=== PATIENT | male | born 1935 | race Two or more races ===

== ENCOUNTER 2019-04-05 18:17 | Inpatient (IN) | payer OTHER ==
[~2019-04-05] VITALS: Ht 170.2 cm; Wt 50.3 kg
[2019-04-05 18:15] VITALS: BP 152/77
--- NOTE | 2019-04-05 18:26 | NUR ---
Direct Admit Note WILCOXFREDDY CASTELLANOS admitted to Telemetry unit as a direct admit per MD order. Patient oriented to RED TUCKER RN primary RN, unit, room, bed, and unit policies regarding patient care and visiting hours. Patient now on continuous telemetry monitoring. Patient weighed by bed scale and encouraged to call if they need something. All questions and concerns addressed, patient verbalized understanding. MD notified of patients arrival and admit orders received.
[2019-04-05] MEDS ORDERED: PPN PER PHARMACY 0 ML IV SCH (19:00)
[2019-04-05] MEDS ORDERED: MORPHINE SULF INJ 2 MG/ML SYRINGE 1ML IV PRN (19:00)
[2019-04-05] MEDS ORDERED: ONDANSETRON HCL 4 MG/2 ML VIAL IV PRN (19:00)
[2019-04-05] MEDS ORDERED: NITROGLYCERIN 0.4 MG SL TAB SL PRN (19:00)
--- NOTE | 2019-04-05 19:21 | NUR ---
Sent sacral wound culture to lab and left upper back/shoulder wound culture to lab.
--- NOTE | 2019-04-05 19:23 | NUR ---
Took wound pictures; one wound on left upper back/shoulder, and one would one medial sacrum.
[2019-04-05] MEDS ORDERED: LEVE250T18 PO (19:33)
[2019-04-05] MEDS ORDERED: SIMV-8 PO (19:33)
[2019-04-05] MEDS ORDERED: POTA-220 PO (19:33)
[2019-04-05] MEDS ORDERED: ASPI81CH43 PO (19:33)
[2019-04-05] MEDS ORDERED: FOLI1TAB6 PO (19:33)
[2019-04-05] MEDS ORDERED: BENA20TA PO (19:33)
[2019-04-05] MEDS ORDERED: AMINO ACID INFUSION IN D10W 1,000 ML IV NR (20:00)
--- NOTE | 2019-04-05 20:00 | NUR ---
SITTER AT BEDSIDE;PT AWAKE BUT ALERT ONLY TO SELF.
[2019-04-05 21:32] VITALS: BP 140/73
[2019-04-05] MEDS: LEVETIRACETAM INJ 500 MG in D5W 5% 100 ML IV SCH (22:58)
[2019-04-05] MEDS: CLINDAMYCIN 300MG IV 50 ML IV SCH (22:58)
[2019-04-05] MEDS: FAMOTIDINE (10MG/ML) 2ML VL IV SCH (22:59)
[2019-04-05] MEDS: MORPHINE SULF INJ 2 MG/ML SYRINGE 1ML IV PRN (23:00)
[2019-04-06] VITALS (7 sets, daily range): BP systolic 115–155; BP diastolic 61–88
[2019-04-06] MEDS: CLINDAMYCIN 300MG IV 50 ML IV SCH ×3 (05:15→22:13)
[2019-04-06 06:45] LABS: Basophils # (auto) 0.1 uL; Basophils % (auto) 0.7 % (0.0-2.0); Eosinophils # (auto) 0.4 uL; Eosinophils % (auto) 5.4 % (0.0-7.0); Hematocrit 32.7 % (41.0-53.0); Hemoglobin 10.8 g/dL (13.5-17.5); Lymphocytes # (auto) 0.7 uL; Lymphocytes % (auto) 9.6 % (10.0-50.0); Mean Corpuscular Hemoglobin 29.4 pg (28.0-32.0); Mean Corpuscular Hgb Conc. 33.1 g/dL (32.0-36.0); Mean Corpuscular Volume 88.9 fL (80.0-100.0); Monocytes # (auto) 0.6 uL; Neutrophils # (auto) 5.4 uL; Neutrophils % (auto) 76.3 % (37.0-80.0); Platelet Count (auto) 374 10^3/uL (140-450); Red Blood Cells 3.68 10^6/uL (4.5-5.90); Red Cell Distribution Width 15.3 % (11.8-14.3); White Blood Cell 7.1 10^3/uL (4.4-10.8)
[2019-04-06 07:00] LABS: Albumin 2.2 g/dL (3.4-5.0); BUN/Creatinine Ratio 11.5; Calcium 7.9 mg/dL (8.5-10.1); Magnesium 1.9 mg/dL (1.6-2.6)
--- NOTE | 2019-04-06 07:00 | NUR ---
PT HAD TWO LARGE BM'S IN THE BED;CLEANED WITH PERICARE AND NEW LINEN. PT TURNED Q2 THROUGHOUT THE NIGHT.PT IS ALERT ONLY TO SELF. SITTER AT BEDSIDE.
[2019-04-06 07:05] LABS: Bilirubin, Total 0.3 mg/dL (0.2-1.0); Phosphorus 2.3 mg/dL (2.5-4.90); Pre Albumin 4.9 mg/dL (20.0-40.0); Total Protein 5.3 g/dL (6.4-8.2)
--- NOTE | 2019-04-06 09:30 | NUR ---
WOUND CARE NOTE: SPECIALTY AIR MATTRESS ORDERED AT THIS TIME. PATIENT TO BE PLACED, PENDING DELIVERY BY RAJ ONEILL
--- NOTE | 2019-04-06 10:19 | NUR ---
CALLED PHARMACY REGARDING KETARARA. STATED THEY WOULD SEND UP.
[2019-04-06] MEDS: FAMOTIDINE (10MG/ML) 2ML VL IV SCH ×2 (10:24→22:13)
[2019-04-06] MEDS: ENOXAPARIN SOD 40 MG/0.4 ML SYRINGE SC SCH (10:24)
--- NOTE | 2019-04-06 10:38 | NUR ---
SPOKE TO ABOUT NEED FOR CONSENT SIGNATURE.
--- NOTE | 2019-04-06 11:00 | NUR ---
WOUND CARE NOTE: IN TO SEE PATIENT AT THIS TIME PER WOUND CARE CONSULT REQUEST. PATIENT ADMITTED TO [facility] WITH DIAGNOSIS OF ALOC, MALNUTRITION, FAILURE TO THRIVE. CURRENT ARMIDA SCORE IS 13. PATIENT WAS NOTED TO HAVE WOUNDS UPON ADMIT. WOUND PHOTOS TAKEN AT TIME OF ADMIT FOR REFERENCE BY BEDSIDE NURSE. PATIENT IS NOTED TO BE MAX ASSIST FOR ALL OF HIS ADL'S. HE IS LETHARGIC, CONFUSED. PATIENT IS NOTED TO HAVE AN UNSTAGEABLE PRESSURE ULCER TO THE LEFT BACK AND RIGHT SACRUM. WOUNDS ARE NECROTIC, WITH YELLOW SLOUGH FILLING THE WOUND BED AREAS. SACRAL WOUND HAS PURPLE ECCHYMOSIS NOTED WITHIN WOUND BED WELL. THIS REPRESENTS AN EVOLVING DTI TO THE SACRUM THAT IS NOW UNSTAGEABLE. LEFT SHOULDER/BACK WOUND IS UNSTAGEABLE. NO S/S OF INFECTION NOTED TO EITHER WOUND BED AREAS. APPLIED THERAHONEY AND OPTIFOAM GENTLE DRESSINGS TO WOUNDS. PATIENT ALSO HAS A SMALL BLACK ESCHAR NEUROPATHIC ULCER TO THE LEFT # 2 TOE. LEFT THIS WOUND OPEN TO THE AIR. SPECIALTY AIR MATTRESS HAS BEEN ORDERED. RECOMMEND: FREQUENT TURN SCHEDULE Q 2 HOURS, PRN CONDITION PERMITS, WITH PRESSURE REDISTRIBUTION USING PILLOWS/WEDGES, DAILY/PRN DRESSING CHANGE TO PRESSURE ULCERS ON LEFT SHOULDER/BACK, AND SACRUM, SPECIALTY AIR MATTRESS, DIETARY CONSULT FOR PRESSURE INJURIES, SKIN/WOUND CARE PLAN, CONTINUED MONITORING BY WOUND CARE TEAM. Addendum: 04/06/19 at 1612 by Angelita Lemos RN Amended: Links added.
--- NOTE | 2019-04-06 11:10 | NUR ---
CALLED PHARMACY AGAIN REGARDING GARRICK.
[2019-04-06] MEDS: LEVETIRACETAM INJ 500 MG in D5W 5% 100 ML IV SCH ×2 (11:25→22:13)
[2019-04-06] MEDS ORDERED: POTASSIUM PHOSPHATE IV ONE (13:00)
[2019-04-06] MEDS ORDERED: D5W 5% IV ONE (13:00)
--- NOTE | 2019-04-06 13:07 | NUR ---
Nutrition Assessment Notes Please refer to link for full assessment notes Est energy needs: 6284-6928 kcals (30-35 kcal/kgBW) Est protein needs: 61-76 gms/day (1.2-1.5 gm/kgBW) If EN support administered, consider Vital AF 1.2 @ 60 ml/hr goal rate Will continue to monitor and reassess prn Addendum: 04/06/19 at [address] Amended: Links added.
--- NOTE | 2019-04-06 13:15 | NUR ---
SWALLOW EVAL THERAPIST AT BEDSIDE.
[2019-04-06 13:34] LABS: INR 1.24 (0.9-1.15); Partial Thromboplastin Time 34.3 sec (23.64-32.05)
--- NOTE | 2019-04-06 13:34 | NUR ---
SWALLOW EVALUATED WITH FAMILY PRESENT. PATIENT HAS NO TEETH NO DENTURES HERE. PATIENT ALOC. PATIENT ABLE TO TOLERATE PUREE DIET TEXTURE WITH NECTAR THICKENED LIQUIDS WITH NO OVERT SIGNS OR SYMPTOMS OF ASPIRATION. PATIENT COUGHED ON THIN LIQUIDS TRIAL. NURSING NOTIFIED.
--- NOTE | 2019-04-06 14:25 | NUR ---
SPOKE TO Diann PUCKETT. RECEIVED NEW ORDERS. WILL FOLLOW THROUGH.
[2019-04-06] MEDS: POTASSIUM EFFERVESENT TAB 25 MEQ PO ONE ×2 (17:00→17:45)
--- NOTE | 2019-04-06 18:30 | NUR ---
PAGED GLASS INSERTER HOSPITALIST REGARDING PATIENT REFUSAL TO DRINK PO POTASSIUM. AWAITING CALL BACK.
--- NOTE | 2019-04-06 18:40 | NUR ---
spoke to radiation physicist hospitalist henry mcqueen. received orders for IV Potassium 40meq one time. will follow through.
--- NOTE | 2019-04-06 19:10 | NUR ---
OPENING NOTE- NOC SHIFT PATIENT IS IN BED, A/O X1. NURSE CHIEF ACCOUNTANT AT BEDSIDE FOR SAFETY PRECAUTIONS. BED IS LOCKED AT LOWEST POSITION, BED RAILS UP X2 AND HEAD OF BED IS UP >30 DEGREES. NO S/SX OF DISTRESS OR SOB. WILL CONTINUE TO MONITOR Q1H AND PRN.
[2019-04-06] MEDS: POTASSIUM CHL 20MEQ/100ML 100 ML IV SCH ×2 (19:35→21:20)
[2019-04-06] MEDS ORDERED: DEXTROSE (50%) 50ML SYRG IV SCH (20:00)
[2019-04-06] MEDS ORDERED: PPN PER PHARMACY IV NR ×8 (20:00)
--- NOTE | 2019-04-06 20:08 | NUR ---
PPN NOT ADMINISTERED; PPN NOT AVAILABLE. ON-SITE PHARMACY CLOSED FOR THE NIGHT. CHARGE NURSE AWARE.
--- NOTE | 2019-04-06 20:20 | NUR ---
SPECIALTY BED. PATIENT PLACED ON SPECIALTY BED PER ORDERS. PATIENT TOLERATED TRANSFER TO BED WELL.
[2019-04-06] MEDS: MORPHINE SULF INJ 2 MG/ML SYRINGE 1ML IV PRN (21:20)
--- NOTE | 2019-04-06 23:20 | NUR ---
PATIENT COUGHING UP SPUTUM. TINGED PINK FROTHY SPUTUM; SUCTION NEEDED. APPROX 20 ML.
[2019-04-07] MEDS ORDERED: InsuLIN REG 1unit/0.01ml Soln (100units/ml) SC SCH
[2019-04-07] MEDS ORDERED: ACCU-CHEK COMFORT CURVE STRIP VI SCH
[2019-04-07 04:55] LABS: Basophils # (auto) 0.1 uL; Basophils % (auto) 1.2 % (0.0-2.0); Eosinophils # (auto) 0.4 uL; Eosinophils % (auto) 8.2 % (0.0-7.0); Hematocrit 32.5 % (41.0-53.0); Hemoglobin 11.1 g/dL (13.5-17.5); Lymphocytes # (auto) 1.1 uL; Lymphocytes % (auto) 24.6 % (10.0-50.0); Mean Corpuscular Hemoglobin 29.5 pg (28.0-32.0); Mean Corpuscular Hgb Conc. 34.1 g/dL (32.0-36.0); Mean Corpuscular Volume 86.5 fL (80.0-100.0); Monocytes # (auto) 0.6 uL; Monocytes % (auto) 12.8 % (0.0-12.0); Neutrophils # (auto) 2.4 uL; Neutrophils % (auto) 53.2 % (37.0-80.0); Nucleated Red Blood Cells % 0.1 %; Platelet Count (auto) 423 10^3/uL (140-450); Red Blood Cells 3.75 10^6/uL (4.5-5.90); Red Cell Distribution Width 15.1 % (11.8-14.3); White Blood Cell 4.5 10^3/uL (4.4-10.8)
[2019-04-07 04:58] VITALS: BP 124/51
[2019-04-07 05:14] LABS: Albumin 2.2 g/dL (3.4-5.0); Magnesium 1.9 mg/dL (1.6-2.6); Potassium 3.7 mmol/L (3.5-5.1)
[2019-04-07 05:20] LABS: BUN/Creatinine Ratio 19.6; Bilirubin, Total 0.2 mg/dL (0.2-1.0); Phosphorus 2.7 mg/dL (2.5-4.90); Total Protein 5.3 g/dL (6.4-8.2)
[2019-04-07] MEDS: CLINDAMYCIN 300MG IV 50 ML IV SCH ×3 (06:21→22:11)
--- NOTE | 2019-04-07 07:22 | NUR ---
PHARMACIST AWARE THAT PPN FOR 04/06 1999 WAS NOT AVAILABLE FOR PATIENT LAST NIGHT. WILL ENDORSE FOLLOW UP TO DAY SHIFT NURSE DAWSON PRIETO.
--- NOTE | 2019-04-07 07:25 | NUR ---
ENDORSED PATIENT CARE TO DAY SHIFT NURSE DAWSON PRIETO. NO S/SX OF DISTRESS, SOB OR PAIN. NURSE ASSOCIATE DATA SCIENTIST AT BEDSIDE FOR SAFETY PRECAUTIONS.
--- NOTE | 2019-04-07 07:30 | NUR ---
Opening Shift Note Assuming care of patient at this time. Patient is resting with eyes closed. Patient shows no signs or symptoms of distress or shortness of breath. Bed is locked and lowered with side rails up x2. Will instruct patient on the plan of care for today once patient is awake. Call light within reach. Will continue to round hourly and as needed. Sitter at bedside for safety.
--- NOTE | 2019-04-07 07:40 | NUR ---
Call to Pharmacy Call to pharmacy at this time. Pharmacist made aware that patient did not receive ordered PPN last night. Pharmacist will try and located original ordered PPN and notify this RN. If original PPN is not located, pharmacist may offer something to substitute until scheduled PPN tonight. Awaiting callback.
[2019-04-07] MEDS ORDERED: AMINO ACID INFUSION IN D10W 1,000 ML IV NR (08:15)
[2019-04-07 09:00] VITALS: BP 108/50
--- NOTE | 2019-04-07 09:00 | NUR ---
Patient Behavior Patient has been unresponsive to commands this morning. Patient will not open eyes. Patient only responds slightly to deep sternal rub. Patient had a blood pressure of 89/45. Trendelenburg position gave a blood pressure of 102/44. Will notify MD and continue to monitor.
[2019-04-07] MEDS: POTASSIUM EFFERVESENT TAB 25 MEQ PO SCH (09:16)
[2019-04-07] MEDS: cefTRIAXone 1GM/50ML D5W 50 ML IV SCH (09:16)
--- NOTE | 2019-04-07 09:16 | NUR ---
Potassium Non-Admin Potassium was unable to be given to patient at this time as patient is not responding to verbal commands and unable to swallow. MD aware. Potassium is currently 3.7. No new orders given.
[2019-04-07] MEDS: FAMOTIDINE (10MG/ML) 2ML VL IV SCH ×2 (09:19→22:12)
[2019-04-07] MEDS: ENOXAPARIN SOD 40 MG/0.4 ML SYRINGE SC SCH (09:19)
--- NOTE | 2019-04-07 10:00 | NUR ---
Patient behavior Patient is awake and alert only to himself. Patient is now able to follow commands. Patient's speech is hard to understand. Speech is very garbled.
[2019-04-07] MEDS: LEVETIRACETAM INJ 500 MG in D5W 5% 100 ML IV SCH ×2 (10:29→22:11)
[2019-04-07] MEDS ORDERED: DEXTROSE (50%) 50ML SYRG IV SCH (12:00)
[2019-04-07] MEDS: InsuLIN REG 1unit/0.01ml Soln (100units/ml) SC SCH ×2 (12:00→17:29)
[2019-04-07] MEDS: ACCU-CHEK COMFORT CURVE STRIP VI SCH ×2 (12:04→17:29)
[2019-04-07 13:00] VITALS: BP 150/87
[2019-04-07] MEDS: MORPHINE SULF INJ 2 MG/ML SYRINGE 1ML IV PRN (16:00)
--- NOTE | 2019-04-07 16:00 | NUR ---
Wound Care Dressings changed to patient's sacrum and left shoulder according to doctor's orders. Patient tolerated well. No distress noted.
[2019-04-07 17:00] VITALS: BP 134/62
--- NOTE | 2019-04-07 17:17 | NUR ---
ATTEMPTED TO TURN PT ON RIGHT SIDE ALL DAY WITH PILLOWS UNDER LEFT SIDE. PT KEEPS SCOOTING OVER AND TURNS ON HIS LEFT SIDE AND KICKS PILLOWS OFF THE BED HE TRIES TO GET OUT OF BED. CONNER BLAIR.
--- NOTE | 2019-04-07 18:19 | NUR ---
Call to /Consents Call to at this time in order to get consents signed. states that she already signed consents, informed that those consents were for a PICC line. Patient's states that she wants to ensure that the DrYoselin is aware of his extensive history before surgery. Patient's will be in tomorrow around 0830 to speak with and sign consents. Left unsigned consents and checklist in the chart.
--- NOTE | 2019-04-07 19:11 | NUR ---
Closing Shift Note Patient resting in bed. No distress noted. Report given. Will endorse care to the environmental auditor RN. Sitter at bedside for safety.
[2019-04-07] MEDS ORDERED: PPN PER PHARMACY IV NR ×8 (20:00)
[2019-04-07 20:20] VITALS: BP 149/74
[2019-04-07 22:00] VITALS: BP 149/74
--- NOTE | 2019-04-07 23:35 | NUR ---
OPENING NOTE- NOC SHIFT PATIENT IS IN BED. BED IS SPECIALTY MATTRESS. NO S/SX OF DISTRESS, SOB OR PAIN. NURSE LAND DEVELOPER AT BEDSIDE FOR SAFETY PRECAUTIONS. WILL CONTINUE TO MONITOR Q1H AND PRN. Addendum: 04/07/19 at 2337 by Susan Bernard RN CORRECT TIME FOR THIS NOTE IS 1914
[2019-04-08] MEDS: ACCU-CHEK COMFORT CURVE STRIP VI SCH ×5 (01:52→23:45)
--- NOTE | 2019-04-08 04:45 | NUR ---
RADIOLOGY AT BEDSIDE FOR CHEST XRAY
[2019-04-08 05:00] VITALS: BP 117/40
--- NOTE | 2019-04-08 05:45 | NUR ---
BED BATH, LINEN CHANGE. PATIENT TOLERATED WELL.
[2019-04-08] MEDS: CLINDAMYCIN 300MG IV 50 ML IV SCH ×3 (05:50→22:00)
--- NOTE | 2019-04-08 05:50 | NUR ---
LAB AT BEDSIDE
[2019-04-08] MEDS: InsuLIN REG 1unit/0.01ml Soln (100units/ml) SC SCH ×5 (06:00→23:45)
[2019-04-08 06:17] LABS: Basophils # (auto) 0.1 uL; Eosinophils # (auto) 0.4 uL; Eosinophils % (auto) 8.1 % (0.0-7.0); Hematocrit 36.2 % (41.0-53.0); Hemoglobin 12.2 g/dL (13.5-17.5); Lymphocytes # (auto) 1.2 uL; Lymphocytes % (auto) 23.9 % (10.0-50.0); Mean Corpuscular Hemoglobin 29.3 pg (28.0-32.0); Mean Corpuscular Hgb Conc. 33.6 g/dL (32.0-36.0); Mean Corpuscular Volume 87.2 fL (80.0-100.0); Monocytes # (auto) 0.5 uL; Monocytes % (auto) 8.9 % (0.0-12.0); Neutrophils % (auto) 58.1 % (37.0-80.0); Platelet Count (auto) 422 10^3/uL (140-450); Red Blood Cells 4.15 10^6/uL (4.5-5.90); Red Cell Distribution Width 15.4 % (11.8-14.3); White Blood Cell 5.2 10^3/uL (4.4-10.8)
[2019-04-08 06:30] LABS: INR 1.15 (0.9-1.15); Partial Thromboplastin Time 30.4 sec (23.64-32.05)
[2019-04-08 07:12] LABS: Magnesium 2.1 mg/dL (1.6-2.6)
[2019-04-08 07:16] LABS: BUN/Creatinine Ratio 20.4; Bilirubin, Total 0.2 mg/dL (0.2-1.0); Phosphorus 3.8 mg/dL (2.5-4.90); Total Protein 5.6 g/dL (6.4-8.2)
--- NOTE | 2019-04-08 07:30 | NUR ---
Opening Note Received report from manufacturing shift supervisor RN. Patient is resting with eyes closed. Patient does not wake to name, patient responds to shaking, patient does not open eyes. Patient is on 2L NC, respirations even and unlabored. Sitter at bedside for safety. Bed in low and locked position, call light within reach. Will continue to monitor Q1 hour and PRN. Patient is NPO for scheduled procedure today.
--- NOTE | 2019-04-08 07:35 | NUR ---
ENDORSED PATIENT CARE TO DAY SHIFT NURSE ROSHAN RN. NO S/SX OF DISTRESS, SOB OR PAIN. NURSE COMMERCIAL TELLER AT BEDSIDE FOR SAFETY PRECAUTIONS.
[2019-04-08] MEDS: cefTRIAXone 1GM/50ML D5W 50 ML IV SCH (08:36)
--- NOTE | 2019-04-08 08:50 | NUR ---
IV removal IV to left forearm noted to be edematous and leaking. IV removed from left forearm with clean sterile technique, catheter fully intact. Pressure dressing applied to site. Patient tolerated well. Will continue to monitor Q1 hour and PRN.
[2019-04-08 09:00] VITALS: BP 126/57
[2019-04-08] MEDS: POTASSIUM EFFERVESENT TAB 25 MEQ PO SCH (10:00)
[2019-04-08] MEDS: FAMOTIDINE (10MG/ML) 2ML VL IV SCH ×2 (10:13→21:37)
[2019-04-08] MEDS: LEVETIRACETAM INJ 500 MG in D5W 5% 100 ML IV SCH ×2 (10:14→21:37)
[2019-04-08] MEDS ORDERED: SODIUM CHLORIDE LOCK 10 ML ONE (10:16)
[2019-04-08] MEDS ORDERED: diphenhdrAMINE HCL 50 MG/1 ML VL ONE (10:17)
[2019-04-08] MEDS ORDERED: LIDOCAINE VISCOUS 2% 15ML UD ONE (10:17)
--- NOTE | 2019-04-08 11:53 | NUR ---
Dr. Juju Jackson at bedside Discussing plan of care with patient and this RN. Will continue to monitor Q1 hour and PRN.
--- NOTE | 2019-04-08 12:17 | NUR ---
Patient taken down to pre-op at bedside
[2019-04-08] MEDS ORDERED: ceFAZolin 1GM/50ML 50 ML IV ONE (12:50)
[2019-04-08 13:00] VITALS: BP 118/45
[2019-04-08] MEDS: fentaNYL CITRATE 100 MCG/2 ML VL ONE ×2 (13:11→13:14)
[2019-04-08] MEDS: MIDAZOLAM HCL 5 MG/ML-1ML VIAL ONE ×2 (13:11→13:14)
--- NOTE | 2019-04-08 13:43 | NUR ---
Received report from OR Awaiting patient to be brought back to room.
--- NOTE | 2019-04-08 14:05 | NUR ---
Patient back to room Patient is s/p peg tube placement. Patient is awake, and restless in bed. Vital signs assessed. and sitter at bedside. Per report, ok to use Peg Tube tomorrow. Will continue to monitor Q1 hour and PRN.
--- NOTE | 2019-04-08 15:21 | NUR ---
Assessment and ss consult Pt is an 84 yr old disoriented and confused male. Prior to admit, pt lives with , Amparo, who is his emergency contact at [phone]. Prior to admit, pt was bedridden, non-verbal, non-responsive, and has seizure disorder. Pt needs full assist in the home with ADL's. Pt's primary is Dr. Toledo and no AD on file. Pt receives income and [facility]. Pt's wants the pt to go to a SNF but pt does not qualify and needs acute care for antibiotics. Pt receives income and [facility]. Pt would benefit from assisted living or long term bed upon d/c. SW educated pt on those options for the future if family is not able to take care of the pt in the home. Further needs will be assessed upon d/c. Addendum: 04/08/19 at 1538 by OCTAVIA MCLEAN Amended: Links added.
--- NOTE | 2019-04-08 15:34 | NUR ---
Nutrition Follow-up Notes Wt.: 52.5 kg as of yesterday Pt's on oxygen via nasal cannula, asleep, no no signs of distress noted during rounds this morning. Pt's NPO, currently on TPN @ 54 ml/hr providing 748 kcal, 60 gms pro, 508 NPCs and 13% Fat. Pt with inadequate PN support aeb current PN infusion meets 37% to 45% of est caloric needs and meets 60% to 90% of est protein needs. Noted pt's to receive tonight another TPN @ 65 ml/hr to provide 956 kcal, 70 gms pro, 676 NPCs and 21% Fat and s/p EGD with PEG tube placement. Est. Needs based on IBW (67 kg) : 8141-1647 kcal (25-30 kcal/kgIBW) and 67-100 gms/day (1.0-1.5 gmd/kgIBW d/t severe hypoalbuminemia). Will continue to monitor pertinent labs and reassess nutrient need prn Labs: Cl 108 H, Cr 0.54 L, Ca 8.0 L, ALT 15 L, ALP 140 H, Tpro 5.6 L, alb 2.0 L, ; Prealb 4.9 L, Trig 42 wnl Skin: Hector scale 14, mod risk, pt's medial sacrum DTI per [employer] web[employer] commerce consultant. Pls refer to truck rental clerk's notes for further details re: tx plans. GI: Pt's no bowel activity since 04/05/19 per [employer] web[employer] commerce consultant. PES: Increased nutrient needs r/t acute/chronic medical/nutritional status aeb Metabolic encephalopathy, Dementia, 78% IBW, BMI 18.1 kg/m2, decreased muscle mass, NPO with PN support, s/p PEG tube placement Altered nutrition related lab values r/t current/chronic medical condition aeb hypokalemia, hyperchloremia, low RFTs, hypocalcemia, hypoalbuminemia Will continue to monitor NPO status, PN tolerance, skin status, pertinent labs and weight trend. F/u in 2 to 3 days. Rec.: 1.) If still NPO, consider to initiate EN support with formula choice of Vital AF 1.2 Santiago @ 60ml/hr goal rate via PEG tube as tolerated when medically appropriate. 2.) If remains on PN support, consider gradual increase on calories and protein to meet at least 75% of est nutrient needs. 3.) Refer pt/family to RD for further nutrition education and weight monitoring upon discharge. 5.) Continue current plan of care.
[2019-04-08] MEDS: MORPHINE SULF INJ 2 MG/ML SYRINGE 1ML IV PRN ×2 (15:53→22:01)
[2019-04-08 17:00] VITALS: BP 139/69
--- NOTE | 2019-04-08 17:10 | NUR ---
PICC Nurse at bedside
--- NOTE | 2019-04-08 17:30 | NUR ---
Midline Placement: Per Dr Juju Jackson, okay to place midline d/t pt requiring only 2 weeks of home Abx therapy. Patient educated on need for midline placement. All risks and benefits explained and all questions and concerns addresses prior to procedure. 18g/10cm midline inserted via right cephalic vein using Ultrasound. Sterile technique utilized. Blood return obtained from lumen and flushed easily with NS using proper technique. Midline secured with saline lock; biodisc and occlusive dressing applied. Primary RN notified. Midline lot #[id number]
[2019-04-08] MEDS: MEROPENEM 1GM IVPB 100 ML IV SCH ×2 (17:39→23:03)
--- NOTE | 2019-04-08 19:05 | NUR ---
Wound Photo Patient has skin tear left lateral knee. Photo taken, area cleaned, and Optifoam applied. assembler fishing floats RN aware. Sitter at bedside.
--- NOTE | 2019-04-08 19:10 | NUR ---
Closing Note Report given to shift superintendent RN. No signs or symptoms of distress noted at this time. Sitter at bedside for safety.
--- NOTE | 2019-04-08 19:50 | NUR ---
OPENING SHIFT NOTE RECEIVED REPORT FROM DAYSHIFT RN. PATIENT LYING IN BED WITH SITTER AT BEDSIDE FOR SAFETY. PATIENT A/O TO SELF ONLY. NO S/S OF DISTRESS OR SOB. NO PAIN NOTED AT THIS TIME. PATIENT ON PPN AT 54 MLS/HR. PRIMARY RN TO START NEW PPN BAG AT 65 MLS/HR AT 1999. BED LOCKED IN LOW POSITION, CALL LIGHT WITHIN REACH. WILL CONTINUE TO MONITOR PATIENT Q1HR AND PRN.
[2019-04-08] MEDS ORDERED: PPN PER PHARMACY IV NR ×8 (20:00)
[2019-04-08 22:00] VITALS: BP 172/55
--- NOTE | 2019-04-08 23:30 | NUR ---
WOUND PHOTO TAKEN OF LEFT UPPER EXTREMITY SKIN TEAR. PATIENT CONTINUOUSLY MOVING ARMS AND LEGS AND IS UNCOOPERATIVE. DRESSED SKIN TEAR WITH 3X3 OPTIFOAM AND PLACED PILLOW IN BETWEEN ARM AND ABDOMINAL AREA TO PREVENT FURTHER SKIN BREAKDOWN.
[2019-04-09 04:04] VITALS: BP 140/55
[2019-04-09 05:09] LABS: Potassium 3.4 mmol/L (3.5-5.1)
[2019-04-09] MEDS: CLINDAMYCIN 300MG IV 50 ML IV SCH (05:13)
[2019-04-09 05:14] LABS: Albumin 2.4 g/dL (3.4-5.0); BUN/Creatinine Ratio 23.5; Bilirubin, Total 0.2 mg/dL (0.2-1.0); Calcium 7.9 mg/dL (8.5-10.1); Magnesium 2.1 mg/dL (1.6-2.6); Phosphorus 2.6 mg/dL (2.5-4.90); Total Protein 5.6 g/dL (6.4-8.2)
[2019-04-09] MEDS: InsuLIN REG 1unit/0.01ml Soln (100units/ml) SC SCH ×3 (06:00→18:45)
[2019-04-09] MEDS: ACCU-CHEK COMFORT CURVE STRIP VI SCH ×3 (06:28→18:45)
[2019-04-09] MEDS: MEROPENEM 1GM IVPB 100 ML IV SCH (06:28)
--- NOTE | 2019-04-09 07:55 | NUR ---
OPENING NOTE Assumed care of patient from NOC RNBharati. Patient alert to voice but unable to communicate clearly. No S/S of distress/SOB or pain. Sitter at bed for patient's safety. Midline to right upper arm infusing PPN @ 65mls/hr.Bed in lowest, locked position with side rails up x3 and fall precautions in place. Will continue to monitor for changes Q1hr and PRN.
[2019-04-09 09:00] VITALS: BP 153/72
[2019-04-09] MEDS ORDERED: POTASSIUM PHOSP 22MEQ(15MMOLE) in NS 100 ML IV ONE (10:00)
[2019-04-09] MEDS: POTASSIUM EFFERVESENT TAB 25 MEQ PO SCH (10:00)
[2019-04-09] MEDS: LEVETIRACETAM INJ 500 MG in D5W 5% 100 ML IV SCH ×2 (10:09→22:21)
[2019-04-09] MEDS: FAMOTIDINE (10MG/ML) 2ML VL IV SCH ×2 (10:09→22:21)
[2019-04-09] MEDS: ENOXAPARIN SOD 40 MG/0.4 ML SYRINGE SC SCH (10:09)
[2019-04-09] MEDS: MORPHINE SULF INJ 2 MG/ML SYRINGE 1ML IV PRN (10:10)
[2019-04-09] MEDS ORDERED: AMOXICILLIN/CLAVULAN 500 MG TAB PO ONE (12:30)
[2019-04-09 13:00] VITALS: BP 104/44
[2019-04-09] MEDS ORDERED: LEVOFLOXACIN 750MG 150 ML IV ONE (14:00)
[2019-04-09] MEDS: LORazepam 2MG/ML-1ML VIAL IV PRN (14:15)
[2019-04-09 17:00] VITALS: BP 106/36
[2019-04-09] MEDS ORDERED: PPN PER PHARMACY IV NR ×9 (20:00)
[2019-04-09 21:39] VITALS: BP 137/67
[2019-04-09] MEDS ORDERED: AMOXICILLIN/CLAVULAN 500 MG TAB PO SCH (22:00)
[2019-04-10] MEDS: ACCU-CHEK COMFORT CURVE STRIP VI SCH ×4 (00:41→17:42)
[2019-04-10] MEDS: InsuLIN REG 1unit/0.01ml Soln (100units/ml) SC SCH ×4 (00:42→17:42)
[2019-04-10 03:22] LABS: Urine Bacteria NONE SEEN /hpf (None Seen); Urine Blood Negative /uL (Negative); Urine Specific Gravity 1.008 (1.001-1.035); Urine WBC <1 /hpf (0 - 3)
[2019-04-10 04:52] VITALS: BP 122/72
[2019-04-10 05:41] LABS: Albumin 2.4 g/dL (3.4-5.0); Calcium 8.3 mg/dL (8.5-10.1); Magnesium 2.3 mg/dL (1.6-2.6); Potassium 3.9 mmol/L (3.5-5.1)
[2019-04-10 05:47] LABS: BUN/Creatinine Ratio 24.1; Bilirubin, Total 0.2 mg/dL (0.2-1.0); Phosphorus 3.1 mg/dL (2.5-4.90); Total Protein 5.7 g/dL (6.4-8.2)
--- NOTE | 2019-04-10 07:30 | NUR ---
Opening Shift Note RECEIVED REPORT FROM NOC RN. Assumed care of patient, awake and alert. No S/S of distress/SOB or pain. BED IN LOWEST, LOCKED POSITION WITH SIDERAILS UP x2 AND CALL LIGHT WITHIN REACH. Instructed on POC and to call for assist PRN, will continue to monitor for changes Q1hr and PRN.
[2019-04-10 09:03] VITALS: BP 132/54
[2019-04-10] MEDS: POTASSIUM EFFERVESENT TAB 25 MEQ PO SCH (10:00)
--- NOTE | 2019-04-10 10:18 | NUR ---
Nutrition Consult and Follow-up Notes Wt.: 51.0 kg as of yesterday Pt's s/p EGD with PEG tube placement (04/08/18), asleep, no signs of distress noted earlier, currently NPO with TPN @ 77 ml/hr providing 1164 kcal, 80 gms pro, 844 NPCs and 26% Fat. Pt with inadequate PN support d/t mod initiation rate delivery of concentrated formula aeb current PN infusion meets 58% to 69% of est caloric needs and meets 60% to 90% of est protein needs. Noted pt's to receive tonight another TPN @ 88 ml/hr to provide 1372 kcal, 90 gms pro, 1012 NPCs and 29% Fat and with MD's order to start on EN support via PEG tube today, per nursing. Endorsed to RN re: RD's recommendation, per MD's approval. Est. Needs based on IBW (67 kg) : 2626-5965 kcal (25-30 kcal/kgIBW) and 67-100 gms/day (1.0-1.5 gmd/kgIBW d/t severe hypoalbuminemia). Will continue to monitor pertinent labs and reassess nutrient need prn Labs: Gluc 109 H, BUN 4 L, Cr 0.58 L, Ca 8.3 L, Tpro 5.7 L, Alb 2.4 L ; Prealb 4.9 L, Trig 42 wnl Skin: Hector scale 11, high risk, pt's medial sacrum DTI per industrial waste inspector. Pls refer to subgrade tester's notes for further details re: tx plans. GI: Pt had 1 BM this morning per industrial waste inspector. PES: Increased nutrient needs r/t acute/chronic medical/nutritional status aeb Metabolic encephalopathy, Dementia, 78% IBW, BMI 18.1 kg/m2, decreased muscle mass, NPO with PN support, s/p PEG tube placement Altered nutrition related lab values r/t current/chronic medical condition aeb hypokalemia, hyperchloremia, low RFTs, hypocalcemia, hypoalbuminemia Will continue to monitor NPO status, PN/EN tolerance, skin status, pertinent labs and weight trend. F/u in 2 to 3 days. Rec.: 1.) If still NPO, consider to initiate EN support starting at lower rate with formula choice of Vital AF 1.2 Santiago @ 65ml/hr goal rate via PEG tube as tolerated while gradually tapering down PN support if medically appropriate. 2.) If pt's no longer on PN support with Albumin continues trending down, consider Prostat 1 pkt BID and daily MVI with minerals and Asc acid 500 mgs BID. 3.) Refer pt/family to RD for further nutrition education and weight monitoring upon discharge. 4.) Continue current plan of care. Thank you for this consult.
[2019-04-10] MEDS: LORazepam 2MG/ML-1ML VIAL IV PRN ×2 (11:40→21:53)
[2019-04-10] MEDS: LEVETIRACETAM INJ 500 MG in D5W 5% 100 ML IV SCH ×2 (12:00→21:52)
[2019-04-10] MEDS: LEVOFLOXACIN 750MG 150 ML IV SCH (12:19)
[2019-04-10] MEDS: FAMOTIDINE (10MG/ML) 2ML VL IV SCH ×2 (12:19→21:53)
[2019-04-10] MEDS: ENOXAPARIN SOD 40 MG/0.4 ML SYRINGE SC SCH (12:20)
[2019-04-10 13:00] VITALS: BP 143/76
--- NOTE | 2019-04-10 16:00 | NUR ---
Provided resources to patient Vanessa and daughter Graciela at bedside regarding board and care, private care, and assisting living. Vanessa and Ira verbalize understanding d/c plan.
[2019-04-10] MEDS: MORPHINE SULF INJ 2 MG/ML SYRINGE 1ML IV PRN (16:08)
[2019-04-10 17:00] VITALS: BP 147/95
--- NOTE | 2019-04-10 19:25 | NUR ---
Opening Shift Note Assumed care of patient. Patient is awake with sitter at bedside. No signs of distress/SOB or pain. Will continue to monitor for changes Q1hr and PRN. Bed locked in lowest position and bed rails up x2. Call light within reach.
[2019-04-10] MEDS ORDERED: PPN PER PHARMACY IV NR ×8 (20:00)
[2019-04-10 22:00] VITALS: BP 148/79
[2019-04-11] MEDS: ACCU-CHEK COMFORT CURVE STRIP VI SCH ×4 (01:31→18:26)
[2019-04-11] MEDS: InsuLIN REG 1unit/0.01ml Soln (100units/ml) SC SCH ×4 (01:32→18:00)
[2019-04-11 05:00] VITALS: BP 107/54
[2019-04-11 06:32] LABS: Albumin 2.3 g/dL (3.4-5.0); Calcium 8.1 mg/dL (8.5-10.1); Magnesium 2.3 mg/dL (1.6-2.6)
[2019-04-11 06:36] LABS: BUN/Creatinine Ratio 35.7; Bilirubin, Total 0.2 mg/dL (0.2-1.0); Total Protein 5.5 g/dL (6.4-8.2)
[2019-04-11 08:00] VITALS: BP 114/52
[2019-04-11] MEDS: LEVETIRACETAM INJ 500 MG in D5W 5% 100 ML IV SCH (09:42)
[2019-04-11] MEDS: FAMOTIDINE (10MG/ML) 2ML VL IV SCH (09:42)
[2019-04-11] MEDS: LEVOFLOXACIN 750MG 150 ML IV SCH (09:42)
[2019-04-11] MEDS: POTASSIUM EFFERVESENT TAB 25 MEQ PO SCH (09:43)
[2019-04-11] MEDS: ENOXAPARIN SOD 40 MG/0.4 ML SYRINGE SC SCH (09:43)
[2019-04-11] MEDS: LORazepam 2MG/ML-1ML VIAL IV PRN (11:01)
[2019-04-11 13:00] VITALS: BP 163/67
[2019-04-11 13:48] VITALS: BP 114/52
[2019-04-11] MEDS ORDERED: Ensure HIGH Protein Chocolate 8oz Bottle GT ONE (15:00)
--- NOTE | 2019-04-11 17:08 | NUR ---
D/C Planning Per consult for peg tube teaching, and wound care with dressing changes: left shoulder, left elbow, sacrum, and left knee (therahoney and Optifoam dressing). Order has been reviewed and approved by AVINASH Solorio. Contact [facility] ext. [phone] Fax:) faxed medical records requesting authorization for [facility]. Contact Ph:( [phone]) Fax:) faxed medical records. Per Jorge from [facility] they are unable to accept patient due to not having a RN available for Sunday04/12/19. Lyndsey was informed. Per [facility] for order to be faxed to [facility]. Faxed updated order to [facility] with [facility]. Contact and faxed medical records to [facility] Ph:) Fax:) faxed medical records with authorization [id number]. Per Chica from [facility] order has been received and service to start on Sunday04/12/19. CONNER Jimenez was informed of discharged plan. Addendum: 04/11/19 at 1717 by ANDREA STANTON Amended: Links added.
--- NOTE | 2019-04-11 18:10 | NUR ---
BOLUS OF 240 ML OF ENSURE ADMINISTERED THROUGH G-TUBE. WILL CHECK RESIDUAL AT 1910.
--- NOTE | 2019-04-11 18:10 | NUR ---
PATIENT'S AND DAUGHTER INSTRUCTED ON PROPER USE OF G-TUBE. FEEDING DEMONSTRATION PROVIDED. ALL QUESTIONS ANSWERED.
--- NOTE | 2019-04-11 19:30 | NUR ---
Opening Shift Note Assumed care of patient. Patient is awake with family at bedside. No S/S of distress/SOB or pain. Will continue to monitor for changes Q1hr and PRN. Bed locked in lowest position and bed rails up x3. Call light within reach.
[2019-04-11] MEDS ORDERED: PPN PER PHARMACY IV NR ×8 (20:00)
--- NOTE | 2019-04-11 20:35 | NUR ---
Patient left at this time with family. All IV's were discontinued, wound care completed and family educated
== END 2019-04-11 20:35 | disposition home health service (06) | DRG 70 ==
LOC: TELE-WESTW 18:17 → WEST WING 22:00
PROVIDERS: ADMIT Nurse Practitioner Acute Care; ATTEND Family Medicine
PROC: 0DH63UZ Insertion of Feeding Device into Stomach, Percutaneous Approach (ICD-10-PCS; principal; 2019-04-08 13:06)
DX: G93.41 Metabolic encephalopathy (principal); L89.153 Pressure ulcer of sacral region, stage 3; E43 Unspecified severe protein-calorie malnutrition; I69.354 Hemiplegia and hemiparesis following cerebral infarction affecting left non-dominant side; Z68.1 Body mass index [BMI] 19.9 or less, adult; L03.90 Cellulitis, unspecified; F03.90 Unspecified dementia, unspecified severity, without behavioral disturbance, psychotic disturbance, mood disturbance, and anxiety; I10 Essential (primary) hypertension; G40.909 Epilepsy, unspecified, not intractable, without status epilepticus; R29.6 Repeated falls; E87.6 Hypokalemia; F01.50 Vascular dementia, unspecified severity, without behavioral disturbance, psychotic disturbance, mood disturbance, and anxiety; B96.5 Pseudomonas (aeruginosa) (mallei) (pseudomallei) as the cause of diseases classified elsewhere; E86.0 Dehydration; R62.7 Adult failure to thrive; Z74.01 Bed confinement status
CPT/HCPCS: 36415; 43246; 71045; 80053; 81001; 82040; 82962; 83735; 84100; 84478; 85025; 85610; 85730; 86850; 86900; 86901; 87077; 87081; 87186; 87205; 92610; G0378; J0690; J0696; J1815; J1956; J2185; J2250; J2405; J3480; J3490; J7060

== ENCOUNTER 2019-04-13 18:35 | Inpatient (IN) | payer OTHER ==
[~2019-04-13] VITALS: Ht 198.1 cm; Wt 45.4 kg
[~2019-04-13 18:35] MED LIST: ASPI81CH43 PO; BENA20TA PO; FOLI1TAB6 PO; LEVE250T18 PO; POTA-220 PO; SIMV-8 PO
[2019-04-13] MEDS ORDERED: SODIUM CHLORIDE 0.9% 1,000 ML IV ONE (20:01)
[2019-04-13] MEDS ORDERED: VANCOMYCIN PER PHARMACY 1,000 MG IV SCH (20:15)
[2019-04-13 21:31] LABS: Basophils # (auto) 0 uL; Basophils % (auto) 0.2 % (0.0-2.0); Eosinophils # (auto) 0.1 uL; Eosinophils % (auto) 0.7 % (0.0-7.0); Hematocrit 32.7 % (41.0-53.0); Hemoglobin 10.4 g/dL (13.5-17.5); Lymphocytes # (auto) 0.8 uL; Lymphocytes % (auto) 6.1 % (10.0-50.0); Mean Corpuscular Hemoglobin 28.2 pg (28.0-32.0); Mean Corpuscular Hgb Conc. 31.9 g/dL (32.0-36.0); Mean Corpuscular Volume 88.3 fL (80.0-100.0); Monocytes # (auto) 0.8 uL; Monocytes % (auto) 5.7 % (0.0-12.0); Neutrophils # (auto) 11.9 uL; Neutrophils % (auto) 87.3 % (37.0-80.0); Platelet Count (auto) 437 10^3/uL (140-450); Red Blood Cells 3.71 10^6/uL (4.5-5.90); Red Cell Distribution Width 15.6 % (11.8-14.3); White Blood Cell 13.7 10^3/uL (4.4-10.8)
[2019-04-13 21:43] LABS: INR 1.17 (0.9-1.15); Partial Thromboplastin Time 31.9 sec (23.64-32.05)
[2019-04-13 21:53] LABS: Potassium 3.7 mmol/L (3.5-5.1)
[2019-04-13 21:54] LABS: Albumin 2.5 g/dL (3.4-5.0)
[2019-04-13 21:57] LABS: Bilirubin, Total 0.5 mg/dL (0.2-1.0); Total Protein 5.6 g/dL (6.4-8.2)
[2019-04-13 22:14] LABS: Urine Bacteria FEW /hpf (None Seen); Urine Blood Negative /uL (Negative); Urine Hyaline Cast FEW /lpf (0 - 2); Urine Mucus FEW (None Seen); Urine Specific Gravity 1.005 (1.001-1.035); Urine WBC <1 /hpf (0 - 3)
[2019-04-13] MEDS ORDERED: IOHEXOL 300 MG/ML 100ML BOTTLE IJ ONE (23:31)
[2019-04-14] MEDS ORDERED: VANCOMYCIN 1GM/250ML 250 ML IV ONE (02:00)
[2019-04-14] MEDS ORDERED: MORPHINE SULFATE 4 MG/ML SYR/VIAL IV PRN (03:15)
[2019-04-14] MEDS ORDERED: DOCUSATE SOD 100 MG CAP PO PRN (03:15)
[2019-04-14] MEDS ORDERED: ACETAMINOPHEN 325 MG TAB PO PRN (03:15)
[2019-04-14] MEDS ORDERED: HYDROcodone-ACET 5/325MG TAB PO PRN (03:15)
[2019-04-14] MEDS ORDERED: ONDANSETRON HCL 4 MG/2 ML VIAL IV PRN (03:15)
[2019-04-14] MEDS: PIPERACILLIN-TAZOB 3.375GM 100 ML IV SCH ×4 (03:30→21:05)
[2019-04-14 05:32] LABS: Basophils # (auto) 0 uL; Basophils % (auto) 0.2 % (0.0-2.0); Eosinophils # (auto) 0.1 uL; Hematocrit 34.9 % (41.0-53.0); Hemoglobin 11.6 g/dL (13.5-17.5); Lymphocytes # (auto) 1.2 uL; Lymphocytes % (auto) 8.3 % (10.0-50.0); Mean Corpuscular Hemoglobin 28.7 pg (28.0-32.0); Mean Corpuscular Hgb Conc. 33.3 g/dL (32.0-36.0); Mean Corpuscular Volume 86.1 fL (80.0-100.0); Monocytes % (auto) 6.8 % (0.0-12.0); Neutrophils % (auto) 83.7 % (37.0-80.0); Platelet Count (auto) 443 10^3/uL (140-450); Red Blood Cells 4.05 10^6/uL (4.5-5.90); Red Cell Distribution Width 15.9 % (11.8-14.3); White Blood Cell 14.4 10^3/uL (4.4-10.8)
[2019-04-14 05:50] LABS: Calcium 8.4 mg/dL (8.5-10.1); Potassium 4.1 mmol/L (3.5-5.1)
[2019-04-14 05:54] LABS: BUN/Creatinine Ratio 39.1
[2019-04-14] MEDS: ASPirin 81 mg TAB PO SCH (10:00)
[2019-04-14] MEDS: POTASSIUM CHL 20 Meq TABLET PO SCH (10:00)
[2019-04-14] MEDS: FOLIC ACID 1 MG TAB PO SCH (10:00)
[2019-04-14] MEDS: PANTOPRAZOLE 40 MG/10 ML VIAL INJ IV SCH (10:04)
--- NOTE | 2019-04-14 12:00 | NUR ---
WOUND CARE NOTE: PATIENT RECENTLY READMITTED TO [facility] WITH DIAGNOSIS OF ACUTE GASTRITIS, DIARRHEA, PRESSURE INJURIES. CURRENT ARMIDA SCORE IS 11. PATIENT IS RESTING ON GURNEY IN THE ER, AWAITING PLACEMENT IN TELE. ORDERED SPECIALTY AIR BED AT THIS TIME. PATIENT TO BE PLACED, PENDING DELIVERY BY RAJ MARR. PATIENT WAS NOTED UPON ADMIT TO HAVE MULTIPLE WOUNDS. ALL WOUNDS WERE PHOTOGRAPHED AT THAT TIME BY BEDSIDE NURSE FOR REFERENCE. PATIENT HAS LARGE UNSTAGEABLE PRESSURE ULCER TO SACRUM, STAGE 3 PRESSURE INJURY TO THE RIGHT SHOULDER, MASD PERIRECTAL, PERINEAL, SCROTAL SKIN FROM MULTIPLE BOUTS WITH INCONTINENT DIARRHEA. RECOMMEND: FREQUENT TURN SCHEDULE Q 2 HOURS, PRN CONDITION PERMITS, WITH PRESSURE REDISTRIBUTION USING PILLOWS/WEDGES, SPECIALTY AIR BED, DAILY/PRN DRESSING CHANGE TO SACRAL AND SHOULDER WOUNDS, BID/PRN APPLICATION OF ZGUARD TO REDDENED SKIN OF PERIRECTUM, PERINEAL, SCROTAL SKIN, SKIN/WOUND CARE PLAN, DIETARY CONSULT, CONTINUED MONITORING BY WOUND CARE TEAM. Addendum: 04/14/19 at 2013 by Angelita Lemos RN Amended: Links added.
[2019-04-14] MEDS ORDERED: HALOPERIDOL LACTATE 5 MG/ML INJ VIAL ONE (17:57)
[2019-04-14] MEDS ORDERED: HALOPERIDOL LACTATE 5 MG/ML INJ VIAL IM PRN (18:00)
[2019-04-14 21:29] VITALS: BP 107/55
--- NOTE | 2019-04-14 21:29 | NUR ---
Telemetry admit from FREDDY QUINONEZ admitted to Telemetry unit after SBAR received. Patient oriented to MICHELINE MCKEON RN primary RN, unit, room, bed, and unit policies regarding patient care and visiting hours. Patient now on continuous telemetry monitoring, tele box # 86 and telemetry reading on arrival to unit is Sinus Rhythm at 86BPM. Patient placed on bedside oxygen, weighed by bedscale and encouraged to call if they need something. All questions and concerns addressed, patient verbalized understanding.
[2019-04-14 21:30] VITALS: BP 107/55
[2019-04-14] MEDS: ATORVASTATIN 20 MG TAB PO SCH ×2 (22:00→23:27)
--- NOTE | 2019-04-14 22:00 | NUR ---
Patient is alert and confused, uncleared speech, oriented to self only. Patient has a ramirez with a drain bag with clear yellow urine, rectal tube with small soft bowel movement and has G-tube in place. Patient is restless and moaning and moving from one side of the bed to the other, mittens in placed. Secured side of bed with pillows. Patient has sitter at bedside.
[2019-04-15] MEDS: PIPERACILLIN-TAZOB 3.375GM 100 ML IV SCH ×3 (02:26→14:27)
[2019-04-15 05:00] VITALS: BP 116/54
--- NOTE | 2019-04-15 05:00 | NUR ---
CLEANSE KHRIS AREA AND APPLIED Z-GUARD. DRESSING TO SACRUM AREA CHANGED. MODERATE AMOUNT OF DRAINAGE NOTED TO FOAM DRESSING. PHOTOS TAKEN TO LEFT 2ND TOE LEFT FOOT AND SKIN TEAR TO LEFT FOREARM.
[2019-04-15] MEDS ORDERED: VANCOMYCIN 750mg/250ml 250 ML IV SCH (06:00)
--- NOTE | 2019-04-15 06:00 | NUR ---
MRSA IN NARES SENT TO LAB.
[2019-04-15 07:48] LABS: Basophils # (auto) 0 uL; Basophils % (auto) 0.4 % (0.0-2.0); Eosinophils # (auto) 0.2 uL; Eosinophils % (auto) 1.7 % (0.0-7.0); Hematocrit 31.8 % (41.0-53.0); Hemoglobin 10.7 g/dL (13.5-17.5); Lymphocytes # (auto) 0.9 uL; Lymphocytes % (auto) 8.2 % (10.0-50.0); Mean Corpuscular Hemoglobin 29.2 pg (28.0-32.0); Mean Corpuscular Hgb Conc. 33.6 g/dL (32.0-36.0); Mean Corpuscular Volume 86.9 fL (80.0-100.0); Monocytes # (auto) 0.9 uL; Monocytes % (auto) 8.3 % (0.0-12.0); Neutrophils # (auto) 8.5 uL; Neutrophils % (auto) 81.4 % (37.0-80.0); Platelet Count (auto) 401 10^3/uL (140-450); Red Blood Cells 3.66 10^6/uL (4.5-5.90); Red Cell Distribution Width 15.6 % (11.8-14.3); White Blood Cell 10.4 10^3/uL (4.4-10.8)
[2019-04-15 08:05] LABS: Albumin 2.3 g/dL (3.4-5.0); Calcium 8.4 mg/dL (8.5-10.1); Potassium 3.5 mmol/L (3.5-5.1)
[2019-04-15 08:08] LABS: BUN/Creatinine Ratio 24.2; Bilirubin, Total 0.4 mg/dL (0.2-1.0); Total Protein 5.6 g/dL (6.4-8.2)
[2019-04-15 09:00] VITALS: BP 106/58
--- NOTE | 2019-04-15 09:03 | NUR ---
Assessment and ss consult hospice Pt is an 84 yr old male who is confused. Prior to admission patient lived home with his , Amparo, who is his emergency contact at [phone] and was total care. Prior to admission patient was bedridden, and non-verbal. Pt needs full assist in the home with ADL's. Patients PCP is Dr. Toledo. Pt receives income and custodial income. Patient is on service with [facility]. I informed Amparo and patients daughter Graciela over the phone of patients ss consult for Hospice. I discussed at length hospice options verses home health. Family is undecided. With Bibiana SW2 as a witness I offered family a choice of hospice providers. Per Graciela and Amparo they would like to speak to someone from [facility] since patient is already on service with them. Ne from [facility] will call and set up a time to meet with family. Per Graciela they will call me back and let me know if they want home health or hospice. Radha verbalized understanding. Addendum: 04/15/19 at 0911 by Myriam DA SILVA Amended: Links added.
--- NOTE | 2019-04-15 09:07 | NUR ---
Received a call from Lab, patient positive for s-diff, charge nurse (Emma) notified.
[2019-04-15] MEDS: POTASSIUM CHL 20 Meq TABLET PO SCH ×2 (09:45→10:00)
[2019-04-15] MEDS: ASPirin 81 mg TAB PO SCH ×2 (09:45→10:49)
[2019-04-15] MEDS: PANTOPRAZOLE 40 MG/10 ML VIAL INJ IV SCH (09:45)
[2019-04-15] MEDS: FOLIC ACID 1 MG TAB PO SCH ×2 (09:45→10:49)
[2019-04-15] MEDS ORDERED: FLORASTOR (S. BOULARDII) 250 MG CAP PO SCH (10:00)
[2019-04-15] MEDS ORDERED: VANCOMYCIN HCL 125MG/5ML ORAL SOL GT ONE (10:00)
--- NOTE | 2019-04-15 10:18 | NUR ---
Dr. Oleary paged regarding PEG access order, awaiting to call back.
--- NOTE | 2019-04-15 10:20 | NUR ---
Received a call from cyn Last to access PEG tube and he made aware of patient has positive c-diff.
--- NOTE | 2019-04-15 10:46 | NUR ---
Called Dr. Oleary regarding potassium can not be crush. Awaiting to call back.
--- NOTE | 2019-04-15 11:20 | NUR ---
Dr. Oleary at bedside and made aware of potassium cannot be crush, received new order, noted and carried it out. Signed: 04/15/19 at 1122 by EBONY FLOWERS RN
[2019-04-15] MEDS ORDERED: POTASSIUM EFFERVESENT TAB 25 MEQ GT ONE (11:30)
--- NOTE | 2019-04-15 11:33 | NUR ---
Transferred to room 204. Report given to Elle PRIETO.
--- NOTE | 2019-04-15 11:39 | NUR ---
RECEIVED PATIENT TO ROOM 204A. ALL BELONGINGS AT BEDSIDE. BED ALARM ON, SIDE RAILS UP X3. PATIENT ALERT TO SELF. WILL CONTINUE TO MONITOR.
[2019-04-15] MEDS ORDERED: VANCOMYCIN HCL 125MG/5ML ORAL SOL PO SCH (12:00)
[2019-04-15 13:00] VITALS: BP 124/76
--- NOTE | 2019-04-15 15:13 | NUR ---
Nutrition Assessment Notes Please refer to link for full assessment notes Est energy needs: 8356-5492 kcals (23-25 kcal/kgBW) Est protein needs: 54-68 gms/day (1.2-1.5 gm/kg BW) Will continue to monitor and reassess prn Addendum: 04/15/19 at [address] Amended: Links added.
--- NOTE | 2019-04-15 15:17 | NUR ---
D/C Planning Per consult for hospice. Contact and faxed medical records to [facility] Ph:( [phone]) Fax:) as requested by the family. Per Ne from [place] patient has been accepted and service to start upon d/c day. Transportation has been arrange with General transport Ph:) cloth picker time will be between 16:00-17:00 via gurney. CONNER Almeida was informed. Addendum: 04/15/19 at 1534 by ANDREA STANTON Amended: Links added.
[2019-04-15 17:00] VITALS: BP 140/62
--- NOTE | 2019-04-15 18:13 | NUR ---
PATIENT DISCHARGED HOME ON HOSPICE. GENERAL TRANSPORT AT BEDSIDE. PATIENT TAKEN BY MADYSONRNEY WITH ALL BELONGINGS. NO SIGNS OF DISTRESS AT DEPARTURE.
[2019-04-16] MEDS ORDERED: POTASSIUM EFFERVESENT TAB 25 MEQ GT SCH (10:00)
== END 2019-04-15 18:20 | disposition hospice, home (50) | DRG 391 ==
LOC: ER 18:41 → TELE 18:42 → TELE-WESTW 04-14 21:30 → TELE-CENTR 04-15 11:31
PROVIDERS: ADMIT Hospitalist; ATTEND Internal Medicine
DX: K29.00 Acute gastritis without bleeding (principal); L89.103 Pressure ulcer of unspecified part of back, stage 3; E43 Unspecified severe protein-calorie malnutrition; A04.72 Enterocolitis due to Clostridium difficile, not specified as recurrent; N39.0 Urinary tract infection, site not specified; L03.114 Cellulitis of left upper limb; Z68.1 Body mass index [BMI] 19.9 or less, adult; R62.7 Adult failure to thrive; F03.90 Unspecified dementia, unspecified severity, without behavioral disturbance, psychotic disturbance, mood disturbance, and anxiety; I10 Essential (primary) hypertension; L89.95 Pressure ulcer of unspecified site, unstageable; L89.150 Pressure ulcer of sacral region, unstageable; Z93.1 Gastrostomy status; Z86.73 Personal history of transient ischemic attack (TIA), and cerebral infarction without residual deficits
CPT/HCPCS: 36415; 36600; 70450; 71045; 74177; 80048; 80053; 81001; 82805; 83605; 84484; 85025; 85379; 85610; 85730; 87040; 87081; 87086; 87493; 87804; C9113; G0378; J2405; J2543

== ENCOUNTER 2019-05-23 18:26 | Inpatient (IN) | payer OTHER ==
[~2019-05-23] VITALS: Ht 172.7 cm; Wt 60.5 kg
[2019-05-23] MEDS ORDERED: SODIUM CHLORIDE 0.9% 1,000 ML IV ONE (19:45)
[2019-05-23] MEDS ORDERED: PANTOPRAZOLE 40 MG/10 ML VIAL INJ IV ONE (19:45)
[2019-05-23 22:23] LABS: Monocytes # (auto) 0.6 uL; Neutrophils # (auto) 8.1 uL
[2019-05-23 22:25] LABS: Basophils # (auto) 0 uL; Basophils % (auto) 0.4 % (0.0-2.0); Eosinophils # (auto) 0.4 uL; Eosinophils % (auto) 3.7 % (0.0-7.0); Hematocrit 24.7 % (41.0-53.0); Hemoglobin 8.3 g/dL (13.5-17.5); Lymphocytes # (auto) 1.5 uL; Lymphocytes % (auto) 14.3 % (10.0-50.0); Mean Corpuscular Hemoglobin 27.9 pg (28.0-32.0); Mean Corpuscular Hgb Conc. 33.8 g/dL (32.0-36.0); Mean Corpuscular Volume 82.6 fL (80.0-100.0); Monocytes % (auto) 5.3 % (0.0-12.0); Neutrophils % (auto) 76.3 % (37.0-80.0); Platelet Count (auto) 403 10^3/uL (140-450); Red Blood Cells 2.99 10^6/uL (4.5-5.90); Red Cell Distribution Width 14.9 % (11.8-14.3); White Blood Cell 10.6 10^3/uL (4.4-10.8)
[2019-05-23 22:28] LABS: Urine Bacteria NONE SEEN /hpf (None Seen); Urine Blood Negative /uL (Negative); Urine Budding Yeast FEW /hpf (None Seen); Urine Specific Gravity 1.013 (1.001-1.035); Urine WBC 114 /hpf (0 - 3)
[2019-05-23 22:39] LABS: INR 1.08 (0.9-1.15); Partial Thromboplastin Time 30.4 sec (23.64-32.05)
[2019-05-23 22:42] LABS: Alanine Aminotransferase 79 U/L (16-61); Albumin 2.1 g/dL (3.4-5.0); Anion Gap 4 (5-15); Aspartate Aminotransferase 29 U/L (15-37); BUN/Creatinine Ratio 54.5; Blood Urea Nitrogen 24 mg/dL (7-18); Calcium 7.7 mg/dL (8.5-10.1); Carbon Dioxide 29 mmol/L (21-32); Chloride 98 mmol/L (98-107); GFR African American 237 mL/min; GFR Non-African American 196 mL/min; Glucose 89 mg/dL (74-106); Potassium 4.4 mmol/L (3.5-5.1); Sodium 131 mmol/L (136-145)
[2019-05-23 22:45] LABS: Alkaline Phosphatase 86 U/L (45-117); Bilirubin, Total 0.3 mg/dL (0.2-1.0); Total Protein 5.5 g/dL (6.4-8.2)
[2019-05-24] MEDS ORDERED: HYDROcodone-ACET 5/325MG TAB PO PRN (00:30)
[2019-05-24] MEDS ORDERED: ONDANSETRON HCL 4 MG/2 ML VIAL IV PRN (00:30)
[2019-05-24] MEDS ORDERED: ACETAMINOPHEN 325 MG TAB PO PRN (00:30)
[2019-05-24] MEDS: SODIUM CHLORIDE 0.9% 1,000 ML IV SCH ×2 (01:03→07:54)
[2019-05-24 04:00] VITALS: BP 123/29
[2019-05-24 07:52] VITALS: BP 100/47
[2019-05-24] MEDS: PANTOPRAZOLE 40 MG/10 ML VIAL INJ IV SCH ×2 (10:05→22:06)
[2019-05-24 10:09] LABS: Basophils # (auto) 0.1 uL; Basophils % (auto) 0.6 % (0.0-2.0); Eosinophils # (auto) 0.6 uL; Eosinophils % (auto) 5.6 % (0.0-7.0); Hematocrit 27.6 % (41.0-53.0); Lymphocytes # (auto) 1.5 uL; Lymphocytes % (auto) 15.1 % (10.0-50.0); Mean Corpuscular Hgb Conc. 32.7 g/dL (32.0-36.0); Mean Corpuscular Volume 85.6 fL (80.0-100.0); Monocytes # (auto) 0.7 uL; Monocytes % (auto) 6.7 % (0.0-12.0); Neutrophils # (auto) 7.2 uL; Platelet Count (auto) 412 10^3/uL (140-450); Red Blood Cells 3.23 10^6/uL (4.5-5.90); Red Cell Distribution Width 15.3 % (11.8-14.3); White Blood Cell 10.1 10^3/uL (4.4-10.8)
[2019-05-24 10:44] LABS: Potassium 4.6 mmol/L (3.5-5.1)
[2019-05-24 10:47] LABS: BUN/Creatinine Ratio 55.3
[2019-05-24 11:56] VITALS: BP 110/41
[2019-05-24] MEDS: levETIRAcetam 500 MG TAB PO SCH (13:49)
[2019-05-24] MEDS: ATORVASTATIN 20 MG TAB PO SCH (13:49)
[2019-05-24] MEDS ORDERED: cefTRIAXone 1GM/50ML D5W 50 ML IV ONE (15:30)
[2019-05-24 17:00] VITALS: BP 114/74
[2019-05-24 21:41] VITALS: BP 132/55
[2019-05-25] MEDS: LORazepam 2MG/ML-1ML VIAL IV PRN ×3 (00:16→16:12)
[2019-05-25 05:00] VITALS: BP 109/53
[2019-05-25 06:38] LABS: Basophils # (auto) 0 uL; Basophils % (auto) 0.1 % (0.0-2.0); Eosinophils # (auto) 0 uL; Eosinophils % (auto) 0.1 % (0.0-7.0)
[2019-05-25 06:44] LABS: Hematocrit 23.7 % (41.0-53.0); Hemoglobin 7.9 g/dL (13.5-17.5); Lymphocytes # (auto) 1.4 uL; Lymphocytes % (auto) 5.2 % (10.0-50.0); Mean Corpuscular Hemoglobin 27.9 pg (28.0-32.0); Mean Corpuscular Hgb Conc. 33.6 g/dL (32.0-36.0); Mean Corpuscular Volume 83.2 fL (80.0-100.0); Monocytes # (auto) 0.6 uL; Monocytes % (auto) 2.3 % (0.0-12.0); Neutrophils # (auto) 24.2 uL; Neutrophils % (auto) 92.3 % (37.0-80.0); Platelet Count (auto) 399 10^3/uL (140-450); Red Blood Cells 2.84 10^6/uL (4.5-5.90); White Blood Cell 26.2 10^3/uL (4.4-10.8)
[2019-05-25 09:00] VITALS: BP 116/51
[2019-05-25] MEDS: SODIUM CHLORIDE 0.9% 1,000 ML IV SCH ×2 (09:38→22:14)
[2019-05-25] MEDS: cefTRIAXone 1GM/50ML D5W 50 ML IV SCH (09:38)
[2019-05-25] MEDS: PANTOPRAZOLE 40 MG/10 ML VIAL INJ IV SCH ×2 (09:39→22:09)
[2019-05-25] MEDS: ATORVASTATIN 20 MG TAB PO SCH (09:39)
[2019-05-25] MEDS: levETIRAcetam 500 MG TAB PO SCH (09:39)
[2019-05-25 13:00] VITALS: BP 97/39
[2019-05-25 17:00] VITALS: BP 88/44
[2019-05-25 21:15] VITALS: BP 94/27
[2019-05-25 23:11] VITALS: BP 109/50
[2019-05-26] MEDS: LORazepam 2MG/ML-1ML VIAL IV PRN ×2 (03:40→22:02)
[2019-05-26 04:11] VITALS: BP 128/50
[2019-05-26] MEDS ORDERED: SODIUM CHLORIDE LOCK 10 ML ONE (08:16)
[2019-05-26] MEDS ORDERED: LIDOCAINE VISCOUS 2% 15ML UD ONE (08:16)
[2019-05-26] MEDS ORDERED: MIDAZOLAM HCL 5 MG/ML-1ML VIAL ONE (08:16)
[2019-05-26] MEDS ORDERED: NALOXONE HCL 0.4 MG/ML VIAL ONE (08:16)
[2019-05-26] MEDS ORDERED: FLUMAZENIL 0.1 MG/ML INJ 10ML MDV IV ONE (08:16)
[2019-05-26] MEDS ORDERED: fentaNYL CITRATE 100 MCG/2 ML VL ONE (08:17)
[2019-05-26] MEDS ORDERED: diphenhdrAMINE HCL 50 MG/1 ML VL ONE (08:17)
[2019-05-26] MEDS: Jevity 1.2 Cal/Fiber 1 Liter PEG SCH (08:30)
[2019-05-26] MEDS: cefTRIAXone 1GM/50ML D5W 50 ML IV SCH (08:30)
[2019-05-26] MEDS: PANTOPRAZOLE 40 MG/10 ML VIAL INJ IV SCH ×2 (08:30→21:53)
[2019-05-26] MEDS: ATORVASTATIN 20 MG TAB PO SCH ×2 (08:51→21:54)
[2019-05-26 09:00] VITALS: BP 104/38
[2019-05-26 13:00] VITALS: BP 117/60
[2019-05-26] MEDS ORDERED: IPRATROPIUM BROM 0.5 MG/2.5ML INH SOL NEB ONE (13:45)
[2019-05-26] MEDS ORDERED: ALBUTEROL SULF 2.5 MG/0.5ML(0.5%) NEB SOLN NEB ONE (13:45)
[2019-05-26] MEDS ORDERED: Jevity 1.2 Cal/Fiber 1 Liter GT SCH (15:30)
[2019-05-26] MEDS: levETIRAcetam 500 MG TAB PO SCH (16:02)
[2019-05-26 17:11] VITALS: BP 131/50
[2019-05-26] MEDS: SODIUM CHLORIDE 0.9% 1,000 ML IV SCH (19:30)
[2019-05-26 22:00] VITALS: BP 135/75
[2019-05-27 05:00] VITALS: BP 140/67
[2019-05-27 09:00] VITALS: BP 153/73
[2019-05-27] MEDS: Jevity 1.2 Cal/Fiber 1 Liter PEG SCH (09:54)
[2019-05-27] MEDS: cefTRIAXone 1GM/50ML D5W 50 ML IV SCH (09:54)
[2019-05-27] MEDS: PANTOPRAZOLE 40 MG/10 ML VIAL INJ IV SCH ×2 (09:54→21:46)
[2019-05-27] MEDS: levETIRAcetam 500 MG TAB PO SCH (09:55)
[2019-05-27] MEDS ORDERED: LINEZOLID 600MG/300ML 300 ML IV ONE (10:15)
[2019-05-27] MEDS ORDERED: ERTAPENEM SOD INJ 1 GM in SODIUM CHL 0.9% 50 ML IV ONE (10:15)
[2019-05-27] MEDS ORDERED: levETIRAcetam 500 MG/5ML ORAL SOLN UD GT ONE (10:15)
[2019-05-27] MEDS: SODIUM CHLORIDE 0.9% 1,000 ML IV SCH (11:43)
[2019-05-27 13:00] VITALS: BP 122/49
[2019-05-27 17:00] VITALS: BP 126/78
[2019-05-27] MEDS: MORPHINE SULFATE 4 MG/ML SYR/VIAL IV PRN (20:06)
[2019-05-27] MEDS: LORazepam 2MG/ML-1ML VIAL IV PRN (21:46)
[2019-05-27] MEDS: ATORVASTATIN 20 MG TAB PO SCH (21:46)
[2019-05-27] MEDS: LINEZOLID 600MG/300ML 300 ML IV SCH (21:46)
[2019-05-27 22:00] VITALS: BP 131/61
[2019-05-28] MEDS: MORPHINE SULFATE 4 MG/ML SYR/VIAL IV PRN (04:47)
[2019-05-28 05:00] VITALS: BP 119/55
[2019-05-28] MEDS: SODIUM CHLORIDE 0.9% 1,000 ML IV SCH (05:28)
[2019-05-28] MEDS: LINEZOLID 600MG/300ML 300 ML IV SCH (08:54)
[2019-05-28] MEDS: PANTOPRAZOLE 40 MG/10 ML VIAL INJ IV SCH (08:54)
[2019-05-28 09:00] VITALS: BP 130/60
[2019-05-28] MEDS: LORazepam 2MG/ML-1ML VIAL IV PRN (09:40)
[2019-05-28] MEDS ORDERED: ERTAPENEM SOD INJ 1 GM in SODIUM CHL 0.9% 50 ML IV SCH (10:00)
[2019-05-28] MEDS: Jevity 1.2 Cal/Fiber 1 Liter PEG SCH (10:00)
[2019-05-28] MEDS ORDERED: levETIRAcetam 500 MG/5ML ORAL SOLN UD GT SCH (10:00)
[2019-05-28 13:00] VITALS: BP 130/47
[2019-05-28 16:48] VITALS: BP 130/47
[2019-05-28 17:00] VITALS: BP 110/57
== END 2019-05-28 16:25 | disposition home health service (06) | DRG 382 ==
LOC: EDBD 18:26 → ER 18:26 → TELE 18:27 → DOU IN ICU 05-24 04:19 → TELE-EAST 05-24 14:34 → EAST 05-24 14:37
PROVIDERS: ADMIT Hospitalist; ATTEND Family Medicine
PROC: 0DJ08ZZ Inspection of Upper Intestinal Tract, Via Natural or Artificial Opening Endoscopic (ICD-10-PCS; principal; 2019-05-26 14:17)
DX: K22.10 Ulcer of esophagus without bleeding (principal); K59.00 Constipation, unspecified; G40.909 Epilepsy, unspecified, not intractable, without status epilepticus; D64.9 Anemia, unspecified; K44.9 Diaphragmatic hernia without obstruction or gangrene; L89.156 Pressure-induced deep tissue damage of sacral region; E78.5 Hyperlipidemia, unspecified; E78.00 Pure hypercholesterolemia, unspecified; Z66 Do not resuscitate; K29.70 Gastritis, unspecified, without bleeding; L89.159 Pressure ulcer of sacral region, unspecified stage; Z51.5 Encounter for palliative care; I10 Essential (primary) hypertension; F03.90 Unspecified dementia, unspecified severity, without behavioral disturbance, psychotic disturbance, mood disturbance, and anxiety; B96.29 Other Escherichia coli [E. coli] as the cause of diseases classified elsewhere; Z93.1 Gastrostomy status; Z86.73 Personal history of transient ischemic attack (TIA), and cerebral infarction without residual deficits; Z79.899 Other long term (current) drug therapy; Z79.82 Long term (current) use of aspirin
CPT/HCPCS: 36415; 71045; 74176; 80048; 80053; 80061; 81001; 83605; 84484; 85025; 85379; 85610; 85730; 86850; 86900; 86901; 87040; 87077; 87081; 87086; 87186; 87205; 93005; C9113; G0378; J0696; J1335; J2250

== ENCOUNTER 2019-06-04 22:33 | Inpatient (IN) | payer OTHER ==
[~2019-06-04] VITALS: Ht 172.7 cm; Wt 48.7 kg
--- NOTE | 2019-06-04 22:20 | NUR ---
PATIENT ARRIVED VIA CRITICAL CARE TRANSPORT THROUGH [facility] A TRANSFER FROM [facility]; PT. PLACED ON BEDSIDE MONITOR AND VENTILATOR; SEE INTERVENTIONS FOR ASSESSMENT; SEE IV SPREADSHEET FOR GTTS; VS STABLE AT THIS TIME; PT. INTUBATED/SEDATED/VENTED; NO S/S OF PAIN USING CCPOT SCALE; PT. HAS MULTIPLE WOUND AREAS AND PICTURES WILL BE TAKEN AND WOUND CARE REQUESTED; PT. DOES NOT HAVE ANY BELONGINGS AT BEDSIDE; WILL CONT. TO MONITOR.
[2019-06-04 22:27] VITALS: BP_SYST 141; BP_SYST 97; BP_DIAS 30; BP_DIAS 37
[2019-06-04 22:45] VITALS: BP 120/40
[2019-06-04 23:00] VITALS: BP_SYST 113; BP_SYST 141; BP_DIAS 30
[2019-06-04 23:15] VITALS: BP 110/35
[2019-06-04 23:30] VITALS: BP 112/36
[2019-06-04] MEDS ORDERED: hydrALAZINE HCL 20 MG/ML VL IV PRN (23:30)
[2019-06-04] MEDS ORDERED: VANCOMYCIN PER PHARMACY 0 MG IV SCH (23:30)
--- NOTE | 2019-06-04 23:30 | NUR ---
WOUND PICTURES TAKEN.
[2019-06-04 23:45] VITALS: BP 110/33
--- NOTE | 2019-06-04 23:45 | NUR ---
PT. HAD SMALL, DARK GREEN, LIQUID STOOL AND OCCULT STOOL CULTURE OBTAINED; PROVIDED PER-CARE; PT. TOLERATED WELL.
[2019-06-05] VITALS (106 sets, daily range): BP systolic 80–140; BP diastolic 25–53
[2019-06-05] MEDS ORDERED: VANCOMYCIN 1GM/250ML 250 ML IV ONE (01:00)
[2019-06-05 01:13] LABS: Basophils # (auto) 0 10 ^3/uL (0-0.2); Basophils % (auto) 0.1 % (0.0-2.0); Eosinophils # (auto) 0.6 10 ^3/uL (0-0.8); Hemoglobin 9.3 g/dL (13.5-17.5); Lymphocytes # (auto) 0.8 10 ^3/uL (0.4-5.4); Lymphocytes % (auto) 4.5 % (10.0-50.0); Mean Corpuscular Hemoglobin 28.1 pg (28.0-32.0); Mean Corpuscular Volume 87.7 fL (80.0-100.0); Monocytes # (auto) 0.7 10 ^3/uL (0-1.3); Monocytes % (auto) 3.9 % (0.0-12.0); Neutrophils # (auto) 16.3 10 ^3/uL (1.6-8.6); Neutrophils % (auto) 88.5 % (37.0-80.0); Platelet Count (auto) 336 10^3/uL (140-450); Red Cell Distribution Width 16.9 % (11.8-14.3); White Blood Cell 18.4 10^3/uL (4.4-10.8)
[2019-06-05 01:25] LABS: INR 1.07 (0.9-1.15); Partial Thromboplastin Time 28.5 sec (23.64-32.05)
[2019-06-05 01:31] LABS: Alanine Aminotransferase 18 U/L (16-61); Albumin 1.3 g/dL (3.4-5.0); Anion Gap 5 (5-15); Aspartate Aminotransferase 18 U/L (15-37); BUN/Creatinine Ratio 77.1; Blood Urea Nitrogen 27 mg/dL (7-18); Calcium 7.5 mg/dL (8.5-10.1); Carbon Dioxide 25 mmol/L (21-32); Chloride 115 mmol/L (98-107); GFR African American 308 mL/min; GFR Non-African American 255 mL/min; Glucose 87 mg/dL (74-106); Potassium 3.7 mmol/L (3.5-5.1); Sodium 145 mmol/L (136-145)
[2019-06-05 01:33] LABS: Alkaline Phosphatase 84 U/L (45-117); Bilirubin, Total 0.4 mg/dL (0.2-1.0); Total Protein 4.8 g/dL (6.4-8.2)
[2019-06-05] MEDS: PIPERACILLIN-TAZOB 3.375GM 100 ML IV SCH ×5 (03:00→23:54)
[2019-06-05] MEDS ORDERED: ACETAMINOPHEN 325 MG TAB PO PRN (03:15)
[2019-06-05] MEDS ORDERED: ONDANSETRON HCL 4 MG/2 ML VIAL IV PRN (03:15)
[2019-06-05] MEDS ORDERED: MORPHINE SULF INJ 2 MG/ML SYRINGE 1ML IV PRN (03:15)
[2019-06-05] MEDS ORDERED: NITROGLYCERIN 0.4 MG SL TAB SL PRN (03:15)
[2019-06-05] MEDS: PANTOPRAZOLE 40mg/50ML NS AE 50 ML IV SCH ×5 (04:00→23:00)
[2019-06-05] MEDS: D5W/SOD CHLO 0.9% 1,000 ML IV SCH ×2 (04:00→16:58)
--- NOTE | 2019-06-05 06:15 | NUR ---
OBTAINED SACRAL WOUND CULTURE.
[2019-06-05] MEDS: ALBUTEROL SULF 2.5 MG/0.5ML(0.5%) NEB SOLN NEB SCH ×3 (07:33→18:31)
--- NOTE | 2019-06-05 07:45 | NUR ---
OPENING Report received from Karrie MAYA RN. Care initiated and initial assessment completed.
[2019-06-05] MEDS ORDERED: PROPOFOL 100 ML IV ONE (08:12)
--- NOTE | 2019-06-05 09:00 | NUR ---
AIR MATTRESS: Air mattress ordered at [facility],Reference # [id number]; ETA 05/07/19 @1810, Call [facility] if need to follow up at [phone] Addendum: 06/05/19 at 1218 by Belkys Llamas RN Amended: Links added.
[2019-06-05] MEDS ORDERED: ASPirin 81 mg TAB PO SCH (10:00)
--- NOTE | 2019-06-05 10:50 | NUR ---
BEDSIDE Dr. Gutierrez bedside assessing patient.
--- NOTE | 2019-06-05 12:00 | NUR ---
WOUND CARE Wound care completed with Marly expansion envelope maker hand. Patients sacral/coccyx wound cleaned and therahoney placed with Optifoam over.
--- NOTE | 2019-06-05 12:00 | NUR ---
WOUND CARE NOTE: Wound care in to see patient per wound care request regarding multiple wounds/skin integrity issue that are noted present on admission. Bedside nurse took photograph of patient's wounds/skin issue upon admission for reference. Patient is 84 years old male with admitting diagnosis of Acute Resp Failure. Patient with history of CVA, Seizure, hyperlipidemia. Patient is resting in ICU bed in Rm. 107A. Patient is intubated,sedated and mechanically ventilated. Patient appears to be no pain using Kruse Boogie Faces Pain Scale. His Hector score is 12. Skin/wound assessment done with the assistance of patient's nurse, CONNER Stein. Patient admitted with multiple wounds. He has 2x2cm open partial thickness skin tear to Lt forearm. Wound is red over ecchymotic skin, finn wound is pink, scant serosanguineous drainage noted. Cleansed L forearm skin tear with wound cleanser,patted dry with gauze, applied Thera honey gauze, covered with Opti foam gentle dressing. Patient's Lt heel has non-blanchable redness (Stage 1 pressure injury). Multiple blanchable redness noted on his feet and toes; area is clean and dry,left open to air. Intact DTI also noted to his Lt lateral hunt measuring 6x1.2cm. DTI is intact dark purple, soft to touch, no drainage/odor noted,left open to air. Patient's medial sacrum noted with large open full thickness wound [id number]. Wound bed is 90% red with 10% bass slough , palpable bone noted. Wound has bright and dark red periwound, minimal serous drainage, no odor noted. Undermining noted from 12:00-06:00, with 0.8cm deepest undermining noted at 06:00 o'clock position. Distal sacrum down to coccyx noted with open DTI (Deep Tissue injury) measuring 8x3cm. Wound is dark purple. Another open wound/DTI noted to patient's Rt lower buttock measuring 3x2.5cm. Cleansed patient's sacral,buttock wounds with wound cleanser,patted dry with gauze, applied Thera honey gauze to medial sacral wound. Applied Z Guard cream to periwound and covered wounds with Opti foam sacral/gentle dressing. Patient tolerated well, repositioned for comfort facing his Rt side,redistributed pressure points with pillows. CONNER Stein at bedside. RECOMMENDATION: Nursing to continue with Daily/PRN dressing change to sacral, buttocks wounds; Q3Days/PRN Dressing change to Lt forearm skin tear per MD order, Dietary consult for wounds and low Hector score, frequent turning and repositioning schedule as condition permits, redistribute pressure points with pillows, air mattress (ordered), elevate heels on pillows,frequent finn check/care, keep clean and dry,continue monitoring by wound care while patient is hospitalized. Addendum: 06/05/19 at 1703 by Belkys Llamas RN Amended: Links added.
[2019-06-05] MEDS: PROPOFOL 100 ML IV SCH (15:10)
[2019-06-05] MEDS: MIDAZOLAM DRIP 50 mg/50mL 50 ML IV SCH ×3 (16:58→23:00)
[2019-06-05] MEDS ORDERED: MIDAZOLAM HCL 1MG/1ML-2 ML VIAL IV ONE (17:00)
--- NOTE | 2019-06-05 17:00 | NUR ---
BEDSIDE Dr. Heller bedside. Seizure like activity noted and Versed ordered. Will give medication as ordered.
[2019-06-05] MEDS ORDERED: MIDAZOLAM HCL 1MG/1ML-2 ML VIAL ONE (17:04)
--- NOTE | 2019-06-05 17:30 | NUR ---
MOVED TO AIR MATTRESS No distress noted, all lines remain intact.
[2019-06-05] MEDS ORDERED: NOREPINEPHRINE 8 MG/250ML KIT 250 ML IV ONE (17:52)
--- NOTE | 2019-06-05 18:00 | NUR ---
MD ROBERTS Spoke to Dr. Heller, reported patients blood pressures in 70s with low MAP. Levophed ordered, read back and verified.
[2019-06-05] MEDS: NOREPINEPHRINE 8 MG/250ML KIT 250 ML IV SCH (18:08)
[2019-06-05] MEDS: ATORVASTATIN 20 MG TAB PO SCH (21:50)
[2019-06-05] MEDS: ENOXAPARIN SOD 100 MG/1 ML SYRINGE SC SCH (21:50)
[2019-06-05] MEDS: VANCOMYCIN 750mg/250ml 250 ML IV SCH (22:15)
[2019-06-06] VITALS (98 sets, daily range): BP systolic 90–198; BP diastolic 25–59
[2019-06-06] MEDS: ALBUTEROL SULF 2.5 MG/0.5ML(0.5%) NEB SOLN NEB SCH ×4 (00:04→18:21)
--- NOTE | 2019-06-06 04:42 | NUR ---
complete bed bath and linen change done
--- NOTE | 2019-06-06 04:43 | NUR ---
oral care adone evry 2 hours and turned every 2 hours
[2019-06-06] MEDS: MIDAZOLAM DRIP 50 mg/50mL 50 ML IV SCH (05:00)
[2019-06-06] MEDS: D5W/SOD CHLO 0.9% 1,000 ML IV SCH (06:01)
[2019-06-06] MEDS: PIPERACILLIN-TAZOB 3.375GM 100 ML IV SCH ×4 (06:01→23:33)
--- NOTE | 2019-06-06 07:45 | NUR ---
OPENING Report received from RONI MAYA RN. Care initiated and initial assessment complete.
--- NOTE | 2019-06-06 08:00 | NUR ---
BEDSIDE Dr. Heller bedside.
[2019-06-06] MEDS: ENOXAPARIN SOD 100 MG/1 ML SYRINGE SC SCH ×2 (10:00→21:35)
--- NOTE | 2019-06-06 10:28 | NUR ---
SPOKE TO Holding Lovenox this morning due to GI bleeding. Confirmed with Dr. Gutierrez. Per Dr. Gutierrez I will speak further with primary in regards to this matter.
[2019-06-06] MEDS: PANTOPRAZOLE 40mg/50ML NS AE 50 ML IV SCH ×3 (10:30→19:29)
[2019-06-06] MEDS: PROPOFOL 100 ML IV SCH ×2 (10:30→23:21)
[2019-06-06 11:10] LABS: Basophils # (auto) 0 10 ^3/uL (0-0.2); Eosinophils # (auto) 0.7 10 ^3/uL (0-0.8); Hemoglobin 8.2 g/dL (13.5-17.5); Lymphocytes # (auto) 0.6 10 ^3/uL (0.4-5.4); Mean Corpuscular Hemoglobin 28.2 pg (28.0-32.0); Monocytes # (auto) 0.8 10 ^3/uL (0-1.3)
[2019-06-06 11:11] LABS: Basophils % (auto) 0.1 % (0.0-2.0); Eosinophils % (auto) 6.4 % (0.0-7.0); Hematocrit 24.9 % (41.0-53.0); Lymphocytes % (auto) 5.9 % (10.0-50.0); Mean Corpuscular Hgb Conc. 33.1 g/dL (32.0-36.0); Mean Corpuscular Volume 85.2 fL (80.0-100.0); Monocytes % (auto) 7.1 % (0.0-12.0); Neutrophils # (auto) 8.5 10 ^3/uL (1.6-8.6); Neutrophils % (auto) 80.5 % (37.0-80.0); Platelet Count (auto) 311 10^3/uL (140-450); Red Blood Cells 2.93 10^6/uL (4.5-5.90); Red Cell Distribution Width 16.4 % (11.8-14.3); White Blood Cell 10.5 10^3/uL (4.4-10.8)
[2019-06-06 11:27] LABS: Potassium 3.1 mmol/L (3.5-5.1)
[2019-06-06 11:34] LABS: Albumin 1.2 g/dL (3.4-5.0); BUN/Creatinine Ratio 48.4; Bilirubin, Total 0.3 mg/dL (0.2-1.0); Calcium 7.3 mg/dL (8.5-10.1); Total Protein 4.4 g/dL (6.4-8.2)
--- NOTE | 2019-06-06 12:45 | NUR ---
assessment Patient is a 84 year old male who is on a vent. Per patients daughter Graciela prior to admission patient lived home with family and functioned with assistance. Patients PCP is Dr Toledo. Patient has a wheelchair and fww for home use. Per Graciela patient was having seizures so family called 911 and patient was admitted. On prior admission patient went home with IV ABX and was on home health with [facility] [place] [facility]. I informed Graciela patients post discharge needs to be determined after extubation and prior to discharge. Graciela verbalized understanding. Addendum: 06/06/19 at 1249 by Myriam DA SILVA Amended: Links added.
--- NOTE | 2019-06-06 13:34 | NUR ---
NUTRITION ASSESSMENT/CONSULT NOTES Please refer to link notes of nutrition screen form filed under the intervention section of the plan of care for further details. Est. Energy Needs: 1742-2378 kcal (30-35 kcal/kg BW). Est. Protein Needs: 84-105 gms/day (1.2-1.5 gms/kg IBW). Will continue to monitor pertinent labs and reassess nutrient need prn Addendum: 06/06/19 at [address] Amended: Links added.
--- NOTE | 2019-06-06 13:45 | NUR ---
MD SPEAKING TO FAMILY Dr. Oleary spoke with the patients Vanessa and daughter Graciela about patients wishes. Family asked me post conference what happens next. Briefed family on their options for care including hospice and terminal extubation. Family will conference with one another to make a decision about patients care.
[2019-06-06] MEDS ORDERED: levoFLOXacin 750MG 150 ML IV ONE (14:00)
[2019-06-06] MEDS: POTASSIUM CHL 20MEQ/100ML 100 ML IV SCH ×3 (16:00→21:28)
[2019-06-06] MEDS ORDERED: LIDOCAINE 1% (LOCAL ANESTH.) PF 5ml SDV ID ONE (16:15)
--- NOTE | 2019-06-06 16:18 | NUR ---
PICC line placement Patient significant other () educated on need for PICC line placement. All risks and benefits explained and all questions and concerns addressed prior to procedure. Noted past medical history and allergies with no contraindications. INR and Plt counts within acceptable range. 5fr PICC line inserted via left Brachial vein using [employer] US and Tip Location System. Sterile technique with maximum barrier precautions utilized. Blood return obtained from each of three lumens and each flushed easily with NS using proper technique. PICC secured with Stat-lock; biodisc and occlusive dressing applied. Stat portable chest x-ray obtained for PICC tip placement. *Baseline Arm Circumference 18cm. Internal length 37cm. External length 0cm. PICC lot #[id number].
--- NOTE | 2019-06-06 16:31 | NUR ---
Okay to use PICC line Xray completed and reviewed. Okay to use PICC line.
--- NOTE | 2019-06-06 16:45 | NUR ---
LIQUID BM Large liquid amount of stool.
--- NOTE | 2019-06-06 16:50 | NUR ---
COMPLETE LINEN CHANGE New linens placed post BM. Patient desaturated during turn but recovered quickly.
--- NOTE | 2019-06-06 17:10 | NUR ---
FAMILY BEDSIDE Updated on PICC placement, BM, and current care. All questions and concerns answered.
[2019-06-06] MEDS: NOREPINEPHRINE 8 MG/250ML KIT 250 ML IV SCH (17:49)
[2019-06-06] MEDS: VANCOMYCIN 750mg/250ml 250 ML IV SCH (18:14)
--- NOTE | 2019-06-06 18:35 | NUR ---
RT NOTE RECEIVED PT INTUBATED AND ON VENT V6 ON STATED SETTINGS IN THE ICU. VENT IS PLUGGED TO RED OUTLET. ALARMS ARE ON AND AUDIBLE AT NURSES STATION. AMBU BAG AT BEDSIDE AND CONNECTED TO O2 SOURCE. 7.5 ETT IS SECURED WITH ANCHORFAST AT 20 CM TO THE ORAL CENTER. BILATERAL BS ARE COARSE. HHN GIVEN INLINE WITH 2.5 MG ALBUTEROL WITHOUT ADVERSE REACTION NOTED. PT WAS SUCTIONED FOR LARGE RETURN FROM ETT AND MODERATE RETURN ORALLY. RN AT BEDSIDE. CONT ORDERED. etCO2 27, POX 98% Addendum: 06/06/19 at 1901 by Desiree Lee RT Amended: Links added.
--- NOTE | 2019-06-06 19:34 | NUR ---
recd report from Jessica
--- NOTE | 2019-06-06 19:59 | NUR ---
RT NOTE ROUTINE VENT CHECK DONE. PT INTUBATED AND ON VENT V6 ON STATED SETTINGS IN THE ICU. VENT IS PLUGGED TO RED OUTLET. ALARMS ARE ON AND AUDIBLE AT NURSES STATION. AMBU BAG AT BEDSIDE AND CONNECTED TO O2 SOURCE. 7.5 ETT IS SECURED WITH ANCHORFAST AT 20 CM TO THE ORAL CENTER. PT WAS SUCTIONED FOR SMALL RETURN. POX WAS NOT READING WELL WITH LOW PERFUSION AND LOW SPO2, CHANGED TO EAR CLIP AND MOVED TO THE LEFT EAR, BETTER WAVEFORM AND GOOD SPO2. RN RONI NOTIFIED. CONT ORDERED. etCO2 26, POX 99% Addendum: 06/06/19 at 2042 by Desiree Lee RT Amended: Links added.
[2019-06-06] MEDS: ATORVASTATIN 20 MG TAB PO SCH (21:35)
[2019-06-06] MEDS: SODIUM CHLOR 0.9% PF (SALINE LOCK) 10ML VIAL/SYR IV SCH (21:49)
--- NOTE | 2019-06-06 22:17 | NUR ---
RT NOTE ROUTINE VENT CHECK DONE. PT INTUBATED AND ON VENT V6 ON STATED SETTINGS IN THE ICU. VENT IS PLUGGED TO RED OUTLET. ALARMS ARE ON AND AUDIBLE AT NURSES STATION. AMBU BAG AT BEDSIDE AND CONNECTED TO O2 SOURCE. 7.5 ETT IS SECURED WITH ANCHORFAST AT 20 CM TO THE ORAL CENTER. CONT ORDERED. etCO2 25, POX 96% Addendum: 06/06/19 at 2256 by Desiree Lee RT Amended: Links added.
[2019-06-07] VITALS (76 sets, daily range): BP systolic 88–155; BP diastolic 20–60
[2019-06-07] MEDS: MIDAZOLAM DRIP 50 mg/50mL 50 ML IV SCH ×2 (00:01→04:52)
[2019-06-07] MEDS: PANTOPRAZOLE 40mg/50ML NS AE 50 ML IV SCH ×5 (00:03→20:57)
--- NOTE | 2019-06-07 00:04 | NUR ---
RT NOTE ROUTINE VENT CHECK DONE. PT INTUBATED AND ON VENT V6 ON STATED SETTINGS IN THE ICU. VENT IS PLUGGED TO RED OUTLET. ALARMS ARE ON AND AUDIBLE AT NURSES STATION. AMBU BAG AT BEDSIDE AND CONNECTED TO O2 SOURCE. 7.5 ETT IS SECURED WITH ANCHORFAST AT 20 CM TO THE ORAL CENTER. BS ARE COARSE. PT WAS SUCTIONED FOR MODERATE RETURN. HHN GIVEN INLINE WITH 2.5 MG ALBUTEROL WITHOUT ADVERSE REACTION NOTED. CONT ORDERED. etCO2 26, POX 98% Addendum: 06/07/19 at 0038 by Desiree Lee RT Amended: Links added.
[2019-06-07] MEDS: ALBUTEROL SULF 2.5 MG/0.5ML(0.5%) NEB SOLN NEB SCH ×4 (00:12→11:43)
--- NOTE | 2019-06-07 02:00 | NUR ---
RT NOTE ROUTINE VENT CHECK DONE. PT INTUBATED AND ON VENT V6 ON STATED SETTINGS IN THE ICU. VENT IS PLUGGED TO RED OUTLET. ALARMS ARE ON AND AUDIBLE AT NURSES STATION. AMBU BAG AT BEDSIDE AND CONNECTED TO O2 SOURCE. 7.5 ETT IS SECURED WITH ANCHORFAST AT 20 CM TO THE ORAL CENTER. HME AND INLINE SUCTION CHANGED WITHOUT INCIDENT. CONT ORDERED. etCO2 25, POX 98% Addendum: 06/07/19 at 0350 by Desiree Lee RT Amended: Links added.
--- NOTE | 2019-06-07 03:37 | NUR ---
PICC line is not draing blood good
[2019-06-07 04:25] LABS: Basophils # (auto) 0 10 ^3/uL (0-0.2); Basophils % (auto) 0.2 % (0.0-2.0); Eosinophils # (auto) 0.7 10 ^3/uL (0-0.8); Hematocrit 22.1 % (41.0-53.0); Hemoglobin 7.2 g/dL (13.5-17.5); Lymphocytes # (auto) 0.6 10 ^3/uL (0.4-5.4); Lymphocytes % (auto) 8.4 % (10.0-50.0); Mean Corpuscular Hemoglobin 27.7 pg (28.0-32.0); Mean Corpuscular Hgb Conc. 32.6 g/dL (32.0-36.0); Mean Corpuscular Volume 84.9 fL (80.0-100.0); Monocytes # (auto) 0.6 10 ^3/uL (0-1.3); Monocytes % (auto) 7.7 % (0.0-12.0); Neutrophils # (auto) 5.5 10 ^3/uL (1.6-8.6); Neutrophils % (auto) 74.7 % (37.0-80.0); Nucleated Red Blood Cells % 0.1 %; Platelet Count (auto) 221 10^3/uL (140-450); Red Cell Distribution Width 16.5 % (11.8-14.3); White Blood Cell 7.3 10^3/uL (4.4-10.8)
--- NOTE | 2019-06-07 04:40 | NUR ---
RT NOTE ROUTINE VENT CHECK DONE. PT INTUBATED AND ON VENT V6 ON STATED SETTINGS IN THE ICU. VENT IS PLUGGED TO RED OUTLET. ALARMS ARE ON AND AUDIBLE AT NURSES STATION. AMBU BAG AT BEDSIDE AND CONNECTED TO O2 SOURCE. 7.5 ETT IS SECURED WITH ANCHORFAST AT 20 CM TO THE ORAL RIGHT. CONT ORDERED. etCO2 26, POX 96% Addendum: 06/07/19 at 0446 by Desiree Lee RT Amended: Links added.
[2019-06-07 04:48] LABS: BUN/Creatinine Ratio 41.9; Bilirubin, Total 0.2 mg/dL (0.2-1.0); Calcium 6.4 mg/dL (8.5-10.1); Magnesium 1.7 mg/dL (1.6-2.6); Total Protein 3.8 g/dL (6.4-8.2)
[2019-06-07] MEDS: PIPERACILLIN-TAZOB 3.375GM 100 ML IV SCH ×3 (05:41→18:00)
--- NOTE | 2019-06-07 07:32 | NUR ---
OPENING Report received from Maame PRIETO. Care initiated and initial assessment complete. Unable to obtain temperature. Will place rectal probe.
--- NOTE | 2019-06-07 07:55 | NUR ---
TEMPERATURE Unable to retrieve temperature with thermometer. Rectal probe placed. Initial read 90.2 degrees Fahrenheit. Warming measures applied including warm blankets and Bare Hugger.
--- NOTE | 2019-06-07 07:56 | NUR ---
RECTAL TUBE PLACED Copious dark green, liquid stool. Rectal tube placed as patient has a coccyx wound. Clean sacral optifoam applied.
--- NOTE | 2019-06-07 08:00 | NUR ---
BEDSIDE Dr. Licea bedside assessing patient.
--- NOTE | 2019-06-07 09:30 | NUR ---
BEDSIDE Dr. Griggs bedside assessing patient and reviewing drips/labs.
[2019-06-07] MEDS: ENOXAPARIN SOD 100 MG/1 ML SYRINGE SC SCH (09:43)
[2019-06-07] MEDS: SODIUM CHLOR 0.9% PF (SALINE LOCK) 10ML VIAL/SYR IV SCH (09:43)
[2019-06-07] MEDS ORDERED: levoFLOXacin 500MG 100 ML IV SCH (10:00)
[2019-06-07] MEDS: MAGNESIUM SULFATE 1GM/100ML 100 ML IV SCH ×2 (10:11→11:24)
--- NOTE | 2019-06-07 11:15 | NUR ---
BEDSIDE Dr. Gutierrez bedside assessing patient.
[2019-06-07 12:31] LABS: Basophils # (auto) 0 10 ^3/uL (0-0.2); Basophils % (auto) 0.2 % (0.0-2.0); Eosinophils # (auto) 0.5 10 ^3/uL (0-0.8); Lymphocytes # (auto) 0.6 10 ^3/uL (0.4-5.4); Monocytes # (auto) 0.5 10 ^3/uL (0-1.3); White Blood Cell 5.7 10^3/uL (4.4-10.8)
[2019-06-07 12:33] LABS: Eosinophils % (auto) 9.1 % (0.0-7.0); Hematocrit 20.5 % (41.0-53.0); Lymphocytes % (auto) 9.8 % (10.0-50.0); Mean Corpuscular Hemoglobin 28.6 pg (28.0-32.0); Mean Corpuscular Volume 92.3 fL (80.0-100.0); Neutrophils # (auto) 4.2 10 ^3/uL (1.6-8.6); Neutrophils % (auto) 72.9 % (37.0-80.0); Platelet Count (auto) 187 10^3/uL (140-450); Red Blood Cells 2.22 10^6/uL (4.5-5.90); Red Cell Distribution Width 17.9 % (11.8-14.3)
[2019-06-07 12:35] LABS: Hemoglobin 6.3 g/dL (13.5-17.5)
--- NOTE | 2019-06-07 12:42 | NUR ---
CALLED FAMILY Requested Vanessa, , to come in to sign consents for blood transfusion and speak to .
--- NOTE | 2019-06-07 13:45 | NUR ---
REFUSAL TO BLOOD , Vanessa, bedside. verbalized understanding that patient needs blood transfusion due to critical hemoglobin levels, and daughter understand risks and benefits, and do not want patient transfused at this time. Refusal signed and placed in chart.
--- NOTE | 2019-06-07 14:05 | NUR ---
BEDSIDE Dr. Griggs bedside speaking with patients at this time. Vanessa, , has decided to change patient to do not resuscitate. Orders verified and placed. Phelps Dr. Griggs explain DNR and that we continue care, family verbalized understanding and agreement.
--- NOTE | 2019-06-07 14:30 | NUR ---
MD VISIT Dr. Oleary came and saw pt. and talked to pt.'s and daughter at bedside regarding POC and possible terminal wean, and if pt. lives after extubation pt. will be discharged to home with [facility] care as decided by family.
--- NOTE | 2019-06-07 14:55 | NUR ---
BEDSIDE Dr. Oleary bedside discussing patient care with Vanessa. Vanessa and her daughter Graciela have verbalized that they want David to be comfortable at this time and they do not want any further medical interventions. Comfort measures received from Dr. Oleary. Dr. Oleary ordered hospice as family verbalized this is their wishes. Family is at the bedside at this time with the patient. I have received verbal understanding from the family as to the next steps, extubation and hospice care.
[2019-06-07] MEDS ORDERED: VANCOMYCIN 750mg/250ml 250 ML IV SCH (15:00)
--- NOTE | 2019-06-07 15:20 | NUR ---
HOSPICE NURSE BEDSIDE Hospice nurse bedside discussing hospice measures with and daughter.
--- NOTE | 2019-06-07 16:20 | NUR ---
LINEN CHANGE Complete linen change done at this time. Patient tolerated well. No desaturation or distress noted.
[2019-06-07] MEDS ORDERED: LORazepam 2MG/ML-1ML VIAL IV PRN (16:30)
--- NOTE | 2019-06-07 16:35 | NUR ---
FAMILY BEDSIDE Family bedside verbalizing that they are ready for patients "tube to be pulled."
--- NOTE | 2019-06-07 16:42 | NUR ---
EXTUBATED Patient was extubated at this time with family bedside per them verbalizing that they were ready for terminal wean.
--- NOTE | 2019-06-07 16:42 | NUR ---
Respiratory note: PT TERMINALLY EXTUBATED PER DR ROSA'S ORDER. SPO2 96% ON 2 LNC, HR 85, RR32, BP 119/32, BS CLEAR/DIMINISHED. RN, AND FAMILY AT BEDSIDE.
--- NOTE | 2019-06-07 17:06 | NUR ---
COMFORT CART ARRIVED
[2019-06-07] MEDS: NOREPINEPHRINE 8 MG/250ML KIT 250 ML IV SCH (17:49)
--- NOTE | 2019-06-07 19:46 | NUR ---
Received report from DANDRE day rn, papers prepared for pt's transfered home with hospice. Pt is DNR status, extubated this afternoon and sedation discontinued Patient has a strong cough and moderate gag reflex, opens eys to stimulation and moves LUE tovards midline with pain, suction , etc.Large amt of cloudy secretions obtained via NT and oropharingeal sictioning.HR 100, RR 33,Sat 84 % on NC, bp 159/37. awaiting for hospice arrival.
--- NOTE | 2019-06-07 22:30 | NUR ---
PT DISCHARGED HOME WITH [facility] TRANSPORTATION TEAM [facility] APPROPRIATE PAPERWORK.ALL TUBES INCLUDING PICC LINE REMOVED -CHECKED WITH RADHA AT [facility]- BUT F/C LEFT IN PLACE FOR THEM TO DECIDE IN AM. PT SUCTIONED AGAIN PRIOR TO DEPARTURE ON 4 L/MIN NC. WOUND CARE DOCUMENTATION INCLUDING DEPARTURE PHOTOS DONE.
--- NOTE | 2019-06-09 08:51 | NUR ---
D/C Planning PROPOSITION PLAYER Received PAGE from Dr. Oleary advising me patient will go on Hospice under [facility]. Placed called to CONNER Webster ext. [phone] advising her to provide me with family member information to follow up. Per CONNER Webster patient Vanessa phone number is [phone]. Vanessa requested [facility] hospice that doctor Mamta recommended. Placed followed up called to PROPOSITION PLAYERcheck writer salesperson with [facility]. Haven with [facility] advised me they will see patient upon d/c day. Transportation was arrange with Safety transport at 21:30. Family aware and agrees of time. CONNER Webster was informed of d/c plan.
== END 2019-06-07 22:34 | disposition hospice, home (50) | DRG 871 ==
LOC: ICU WEST 22:33
PROVIDERS: ADMIT Internal Medicine; ATTEND Internal Medicine
PROC: 5A1935Z Respiratory Ventilation, Less than 24 Consecutive Hours (ICD-10-PCS; 2019-06-04)
PROC: 0BH17EZ Insertion of Endotracheal Airway into Trachea, Via Natural or Artificial Opening (ICD-10-PCS; 2019-06-04)
PROC: 5A1945Z Respiratory Ventilation, 24-96 Consecutive Hours (ICD-10-PCS; principal; 2019-06-06)
PROC: 0BH17EZ Insertion of Endotracheal Airway into Trachea, Via Natural or Artificial Opening (ICD-10-PCS; 2019-06-06)
PROC: 02HV33Z Insertion of Infusion Device into Superior Vena Cava, Percutaneous Approach (ICD-10-PCS; 2019-06-06)
DX: A41.9 Sepsis, unspecified organism (principal); L89.154 Pressure ulcer of sacral region, stage 4; J96.00 Acute respiratory failure, unspecified whether with hypoxia or hypercapnia; J69.0 Pneumonitis due to inhalation of food and vomit; E43 Unspecified severe protein-calorie malnutrition; G40.201 Localization-related (focal) (partial) symptomatic epilepsy and epileptic syndromes with complex partial seizures, not intractable, with status epilepticus; K92.2 Gastrointestinal hemorrhage, unspecified; N17.9 Acute kidney failure, unspecified; R57.9 Shock, unspecified; Z68.1 Body mass index [BMI] 19.9 or less, adult; R13.10 Dysphagia, unspecified; L89.622 Pressure ulcer of left heel, stage 2; Z53.29 Procedure and treatment not carried out because of patient's decision for other reasons; E78.5 Hyperlipidemia, unspecified; I10 Essential (primary) hypertension; Z79.82 Long term (current) use of aspirin; Z79.899 Other long term (current) drug therapy; Z80.0 Family history of malignant neoplasm of digestive organs; Z80.42 Family history of malignant neoplasm of prostate; Z86.73 Personal history of transient ischemic attack (TIA), and cerebral infarction without residual deficits; D64.9 Anemia, unspecified; Z74.01 Bed confinement status
CPT/HCPCS: 36415; 36569; 36600; 71045; 80053; 80202; 82270; 82805; 83605; 83735; 83880; 84484; 85025; 85610; 85730; 86850; 86900; 86901; 86920; 87040; 87070; 87077; 87081; 87186; 87205; 93971; 94002; 94003; 94640; G0378; J1956; J2250; J2543; J2704; J3480; J7042; J7060